=== PATIENT | female | born 1945 | race Caucasian/White ===

== ENCOUNTER 2018-11-15 10:50 | Outpatient (CLI) | payer MEDICARE, SELFPAY ==
[2018-11-15 11:52] LABS: Hemoglobin A1C 7.4 % (4.5-6.2)
[2018-11-15 12:07] LABS: ALT 25 U/L (12-78); AST 15 U/L (15-37); Albumin 3.6 g/dL (3.4-5.0); Alkaline Phosphatase 122 U/L (46-116); Anion Gap 9.5 mmol/L (3-11); BUN 22 mg/dL (7-18); Bilirubin, Total 0.3 mg/dL (0.2-1.0); CO2 27.5 mmol/L (21.0-32.0); CREATININE 0.96 mg/dL (0.55-1.02); Calcium 9.5 mg/dL (8.5-10.1); Calculated LDL 80 mg/dL; Chloride 106 mmol/L (98-107); Cholesterol 174 mg/dL (50-200); Estimated GFR 56.97 (mL/min/1.73m2); Glucose 122 mg/dL (70-100); HDL Cholesterol 65 mg/dL (40-60); Potassium 4.9 mmol/L (3.5-5.1); Sodium 143 mmol/L (136-145); Triglyceride 145 mg/dL (30-150)
== END 2018-11-15 11:10 ==
PROVIDERS: PCP Family Medicine; Visit Provider Family Medicine
DX: E11.9 Type 2 diabetes mellitus without complications (principal); E78.5 Hyperlipidemia, unspecified; I10 Essential (primary) hypertension
CPT/HCPCS: 36415; 80053; 80061; 83721; 83036

== ENCOUNTER 2019-01-24 00:36 | Outpatient (CLI) | payer MEDICARE, SELFPAY ==
--- NOTE | 2019-01-24 10:36 | MERGE_ITS ---
*[facility]* *[facility]* [address] [place] [address] Date of study: 01/24/2019 Transthoracic Echocardiography M-mode, complete 2D, complete spectral Doppler, and color Doppler *STUDY CONCLUSIONS* Summary: 1. Left ventricle: The cavity size was normal. Systolic function was normal. The estimated ejection fraction was 60-65%. Stroke volume/bsa (LVOT, Doppler): 27ml/m^2. 2. Aortic valve: There was mild stenosis. There was mild to moderate regurgitation. Peak velocity (S): 2.5m/sec. Mean gradient (S): 13.7mm Hg. VTI ratio of LVOT to aortic valve: 0.38. Valve area (VTI): 0.9cm^2. Valve area (Vmax): 1cm^2. Indexed valve area (Vmean): 0.4cm^2/m^2. Cannot discount the possibility of paradoxical LF-LG . 3. Mitral valve: There was mild regurgitation. 4. Right ventricle: The cavity size was normal. Wall thickness was normal. Systolic function was normal. 5. Atrial septum: No defect or patent foramen ovale was identified. 6. Tricuspid valve: There was mild-moderate regurgitation. 7. Pulmonary arteries: Pulmonary systolic pressure was in the range of 25mm Hg to 35mm Hg. 8. Inferior vena cava: The vessel was normal in size. The respirophasic diameter changes were in the normal range (greater than or equal to 50%), consistent with normal central venous pressure. *PATIENT PRESENTATION* Height: 160cm (63in ) S/D Pressure: 166 / 75 Weight: 95.3kg (209.6lb ) BSA: 2.1m^2 Test start time: 10:35 AM. Test stop time: 11:30 AM. Mary Padilla Dana REFERRING Mary Larson PERFORMING [facility] EXCELSIOR CUTTER [place] Gaitan *PROCEDURE DATA* Procedure information: This study was interpreted by [facility]. Pertinent images and digital data are archived for permanent storage and are available for subsequent review. No prior study was available for comparison. Study status: Routine. Transthoracic echocardiography. M-mode, complete 2D, complete spectral Doppler, and color Doppler. A Transthoracic Echocardiogram was performed. Scanning was performed from the parasternal, apical, subcostal, and suprasternal notch acoustic windows. Images were obtained using an [employer] SC 2000 cardiac ultrasound machine. Image quality was adequate. Study completion: The patient tolerated the procedure well. History: PMH: Murmur. *CARDIAC ANATOMY* Left ventricle: The cavity size was normal. Systolic function was normal. The estimated ejection fraction was 60-65%. The tissue Doppler parameters were abnormal. Diastolic parameters were normal for age. There was no evidence of elevated ventricular filling pressure by Doppler parameters. Aortic valve: Moderately thickened, moderately calcified leaflets. Doppler: There was mild stenosis. There was mild to moderate regurgitation. VTI ratio of LVOT to aortic valve: 0.38. Valve area (VTI): 0.9cm^2. Indexed valve area (VTI): 0.4cm^2/m^2. Peak velocity ratio of LVOT to aortic valve: 0.4. Valve area (Vmax): 1cm^2. Indexed valve area (Vmax): 0.5cm^2/m^2. Mean velocity ratio of LVOT to aortic valve: 0.36. Valve area (Vmean): 0.8cm^2. Indexed valve area (Vmean): 0.4cm^2/m^2. Mean gradient (S): 13.7mm Hg. Peak gradient (S): 25.7mm Hg. Aorta: Aortic root: The aortic root was normal in size. Ascending aorta: The ascending aorta was normal in size. Mitral valve: Doppler: There was no evidence for stenosis. There was mild regurgitation. Valve area by pressure half-time: 3.6cm^2. Indexed valve area by pressure half-time: 1.7cm^2/m^2. Peak gradient (D): 3.1mm Hg. Left atrium: The atrium was normal in size. Atrial septum: No defect or patent foramen ovale was identified. Right ventricle: The cavity size was normal. Wall thickness was normal. Systolic function was normal. Pulmonic valve: Doppler: There was no evidence for stenosis. There was mild regurgitation. Peak gradient (S): 3.1mm Hg. Tricuspid valve: Doppler: There was mild-moderate regurgitation. Pulmonary artery: Poorly visualized. Pulmonary systolic pressure was in the range of 25mm Hg to 35mm Hg. Right atrium: Poorly visualized. Pericardium: There was no pericardial effusion. Systemic veins: Inferior vena cava: The vessel was normal in size. The respirophasic diameter changes were in the normal range (greater than or equal to 50%), consistent with normal central venous pressure. Measurements Left ventricle Value Reference LV ID, ED, PLAX 4.4 cm 3.5 - 6.0 LV ID, ES, PLAX 2.8 cm 2.1 - 4.0 LV PW thickness, ED, PLAX 1.0 cm --------- LV end-diastolic volume, 1-p A2C 84 ml --------- LV ejection fraction, 1-p A2C 63 % --------- LV end-diastolic volume, 1-p A4C 80 ml --------- LV ejection fraction, 1-p A4C 50 % --------- LV e', lateral 0.083 m/sec --------- LV E/e', lateral 11 --------- LV e', medial 0.06 m/sec --------- LV E/e', medial 15 --------- LV e', average 0.071 m/sec --------- LV E/e', average 12 --------- Ventricular septum Value Reference IVS thickness, ED, PLAX 1.0 cm --------- LVOT Value Reference LVOT ID, A-P 1.7 cm --------- LVOT area 2.4 cm^2 --------- LVOT peak velocity, S 1.02 m/sec --------- LVOT mean velocity, S 0.62 m/sec --------- LVOT VTI, S 24.3 cm --------- LVOT peak gradient, S 4.2 mm Hg --------- LVOT mean gradient, S 1.9 mm Hg --------- Stroke volume (SV), LVOT DP 57 ml --------- Stroke index (SV/bsa), LVOT DP 27 ml/m^2 --------- Aortic valve Value Reference Aortic valve peak velocity, S 2.5 m/sec --------- Aortic valve mean velocity, S 1.7 m/sec --------- Aortic valve VTI, S 64.0 cm --------- Aortic mean gradient, S 13.7 mm Hg --------- Aortic peak gradient, S 25.7 mm Hg --------- VTI ratio, LVOT/AV 0.38 --------- Aortic valve area, VTI 0.9 cm^2 --------- Velocity ratio, peak, LVOT/AV 0.4 --------- Aortic valve area, peak velocity 1 cm^2 --------- Velocity ratio, mean, LVOT/AV 0.36 --------- Aortic valve area, mean velocity 0.8 cm^2 --------- Aortic valve area/bsa, mean velocity 0.4 cm^2/m^2 --------- Aortic regurg deceleration 164 cm/s^2 --------- Aortic regurg pressure half-time 580 ms --------- Aorta Value Reference Aortic root ID, ED 2.8 cm --------- Ascending aorta ID, A-P, S 3.4 cm --------- Left atrium Value Reference LA ID, A-P, ES 3.7 cm --------- LA ID/bsa, A-P 1.8 cm/m^2 <=2.2 LA volume, ES, 2-p 54 ml --------- LA volume/bsa, ES, 2-p 26 ml/m^2 --------- LA/aortic root ratio 1.34 --------- Mitral valve Value Reference Mitral E-wave peak velocity 0.88 m/sec --------- Mitral A-wave peak velocity 0.93 m/sec --------- Mitral deceleration time 209 ms 150 - 230 Mitral pressure half-time 61 ms --------- Mitral peak gradient, D 3.1 mm Hg --------- Mitral E/A ratio, peak 0.94 --------- Mitral valve area, PHT, DP 3.6 cm^2 --------- Tricuspid valve Value Reference Tricuspid regurg peak velocity 2.7 m/sec --------- Tricuspid peak RV-RA gradient 28.7 mm Hg --------- Pulmonic valve Value Reference Pulmonic peak gradient, S 3.1 mm Hg --------- Legend: (L) and (H) saulo values outside specified reference range. I have personally reviewed the images and have reviewed and edited the reported findings. Electronically signed by Andrés Santiago MD 01/24/2019 18:53
== END 2019-01-24 00:56 ==
PROVIDERS: PCP Family Medicine; Visit Provider Family Medicine
DX: R01.1 Cardiac murmur, unspecified (principal); I35.2 Nonrheumatic aortic (valve) stenosis with insufficiency; I36.1 Nonrheumatic tricuspid (valve) insufficiency; I10 Essential (primary) hypertension
CPT/HCPCS: 93306

== ENCOUNTER 2019-03-07 12:00 | Outpatient (REF) | payer MEDICARE, SELFPAY ==
[2019-03-08 13:53] LABS: Microalb ug/mg Crea 125.5 ug/mg Cr
== END 2019-03-07 12:20 ==
LOC: NCHCN 12:00
PROVIDERS: PCP Family Medicine; Visit Provider Family Medicine
DX: E11.9 Type 2 diabetes mellitus without complications (principal)
CPT/HCPCS: 82043; 82570

== ENCOUNTER 2019-04-19 00:42 | Outpatient (CLI) | payer MEDICARE, SELFPAY ==
--- NOTE | 2019-04-19 09:34 | DI.NM_ITS ---
APPROVED REPORT Exam: Pharmacologic Patient Location: Out-Patient Room/Bed: Stress Nurse: Cristina Armstrong RN BMI: 36.38 Baseline Rhythm: Sinus. P-mitrale. Abnormal R-wave progression, early transition. Indications: Chest pressure. Pt reports last episode was 2 days ago while walking up her driveway (mi nimal incline). She experienced chest heaviness associated with some shortness of breath and jaw tigh tness. The pain subsided within minutes of rest and rubbing her chest. Medical History Medical History: Diabetic ??? Noninsulin, HTN Allergies: No known drug allergies Cardiac Risk Factors: HTN, Diabetes (non-insulin), FHX of CAD Pretest Chest Pain Characteristics: Exertional Chest pain Physical Disabilities: Knees Lung Sounds: Clear to auscultation Heart Sounds: Regular Stress Test Details Test: Pharmacologic stress testing performed using 0.4 mg of regadenoson per 5 mL given IV over 10 s econds. Nuclear Acquisition: Rest Tc-99m/Stress Tc-99m 1 day Rest Isotope: Tc-99m Sestamibi. Dose: 11.5 Date: 04/19/2019 Injection Time: 0820 Stress Isotope: Tc-99m Sestamibi. Dose: 36.8 Date: 04/19/2019 Injection Time: 1000 HR Max Heart Rate (APMHR): 147 bpm Resting HR Supine: 65 bpm Target HR (85% APMHR): 124 bpm Max HR Achieved: 79 bpm % of APMHR: 53 HR response to stress: Normal HR response to stress BP Resting BP Supine: 134/82 mmHg Max BP: 160/80 mmHg Recovery BP: 158/84 mmHg BP response to stress: Normal blood pressure response to stress. ECG Resting ECG: Sinus Rhythm ST Change: normal Stress ECG: Sinus Rhythm ST Change: No significant ST segment changes. Arrhythmia: Rare PVCs. Recovery ECG: Sinus Rhythm Recovery ST Change: No significant ST segment changes. Clinical Stress Symptoms: No significant symptoms post lexiscan injection. Exercise duration: 9 min59 sec Stress ECG Conclusion 1. No evidence of ischemia on the ECG portion of this exam. Protocol Used: Regadenoson Stress Test Summary STAGE HR BP Symptoms NOTES Supine 65 134/82 1 min post lexiscan injection 79 160/80 3 min post lexiscan injection 77 150/90 6 min post lexiscan injection 72 160/84 9 min post lexiscan injection 69 158/84 MPI Conclusion Stress ejection fraction was 72%. There is no evidence of ischemia on the imaging portion of this exam. This represents a normal SPECT stress test. Radiologist Interpretation Radiologist agrees with Shoe Sprayer's Interpretation. Radiologist Interpretation by: Tammi Guan MD Interpretation Date/Time: 04/20/2019 08:47:16
[2019-04-19] MEDS: Regadenoson 0.4 MG/5 ML SYR IVP (09:55)
== END 2019-04-19 01:02 ==
PROVIDERS: PCP Family Medicine; Visit Provider Nurse Practitioner
DX: R07.89 Other chest pain (principal); R06.02 Shortness of breath; I10 Essential (primary) hypertension; E11.9 Type 2 diabetes mellitus without complications; Z82.49 Family history of ischemic heart disease and other diseases of the circulatory system
CPT/HCPCS: 78452; 93016; 93018; 93017; J2785

== ENCOUNTER 2019-05-09 10:07 | Outpatient (CLI) | payer MEDICARE, SELFPAY | END 2019-05-09 10:27 | PROVIDERS: PCP Family Medicine; Visit Provider Family Medicine | DX: R00.2 Palpitations (principal) ==

== ENCOUNTER 2019-05-15 12:58 | Outpatient (CLI) | payer MEDICARE, SELFPAY | END 2019-05-15 13:18 | PROVIDERS: PCP Family Medicine; Visit Provider Family Medicine | DX: R00.2 Palpitations (principal); I49.1 Atrial premature depolarization; I49.3 Ventricular premature depolarization | CPT/HCPCS: 93225 ==

== ENCOUNTER 2019-05-18 07:17 | Outpatient (CLI) | payer MEDICARE, SELFPAY ==
--- NOTE | 2019-05-19 08:46 | W.HOLTRPT ---
Date of service: 05/19/19 Time of Service: 08:46 Holter Monitor Report Holter Monitor Note: There is a 2-day Holter monitor ordered for the indication of palpitations. ?The patient was in normal sinus rhythm for majority of the recording. ?There were no episodes of supraventricular tachycardia and rare (less than 1%) premature atrial contractions. ?There were 0 episodes of ventricular tachycardia and one single ventricular ectopic beat. ?There were no episodes of atrial fibrillation, no pauses greater than 3 seconds and no episodes of high degree heart block. ?Diary events were associated with sinus rhythm and sinus tachycardia.
== END 2019-05-18 07:37 ==
PROVIDERS: PCP Family Medicine; Visit Provider Family Medicine
DX: R00.2 Palpitations (principal); I49.1 Atrial premature depolarization; I49.3 Ventricular premature depolarization
CPT/HCPCS: 93226

== ENCOUNTER 2019-05-19 08:46 | Outpatient (CLI) | payer MEDICARE, SELFPAY | END 2019-05-19 09:06 | PROVIDERS: PCP Family Medicine; Referring Provider Family Medicine; Visit Provider Internal Medicine Cardiovascular Disease | DX: R00.2 Palpitations (principal); I49.1 Atrial premature depolarization; I49.3 Ventricular premature depolarization | CPT/HCPCS: 93227 ==

== ENCOUNTER 2019-06-20 08:41 | Outpatient (CLI) | payer MEDICARE, SELFPAY | END 2019-06-20 09:01 | PROVIDERS: PCP Family Medicine; Visit Provider Internal Medicine Cardiovascular Disease | DX: I35.0 Nonrheumatic aortic (valve) stenosis (principal); R07.89 Other chest pain; I10 Essential (primary) hypertension; E78.5 Hyperlipidemia, unspecified; E11.9 Type 2 diabetes mellitus without complications | CPT/HCPCS: 99203; 93005; 93010 ==

== ENCOUNTER 2019-07-01 09:58 | Outpatient (CLI) | payer MEDICARE, SELFPAY ==
--- NOTE | 2019-07-01 09:15 | DI.RAD_ITS ---
EXAM: XR KNEE LT 3V AP,LAT,SHARON INDICATION: left knee pain. COMPARISON: No exams were available for comparison TECHNIQUE: 2D digital imaging was performed. FINDINGS: On the weight-bearing view, there is moderate to severe narrowing of the lateral femoral tibial joint . There is periarticular sclerosis, mild periarticular spurring and subchondral cyst formation. Ther e is mild spurring medially. Patellofemoral joint shows minimal degenerative changes. Chondrocalcin osis is seen. No joint effusion is visible. 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 DATA REPOSITORY: RADIATION DOSE DELIVERED:
--- NOTE | 2019-07-01 09:15 | DI.RAD_ITS ---
EXAM: XR KNEE RT 3V AP,LAT,SHARON INDICATION: right knee pain. COMPARISON: XR KNEE LT 3V AP,LAT,SHARON from 07/01/2019 TECHNIQUE: 2D digital imaging was performed. FINDINGS: There is moderate narrowing of the lateral femoral tibial joint. There are multiple subchondral cyst s. There is periarticular spurring. There is some compensatory widening of the medial femoral tibia l joint. Chondrocalcinosis is seen in the medial joint space. There is minimal spurring at the huang llofemoral joint. There is a rounded bony density projecting anteriorly in the midline which could r epresent a loose body versus bone island. No joint effusion is visible. 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 Question of joint space loose bod y. DATA REPOSITORY: RADIATION DOSE DELIVERED:
== END 2019-07-01 10:18 ==
PROVIDERS: PCP Family Medicine; Referring Provider Family Medicine; Visit Provider Student in an Organized Health Care Education/Training Program
DX: M25.561 Pain in right knee (principal); M25.562 Pain in left knee; M11.261 Other chondrocalcinosis, right knee; M11.262 Other chondrocalcinosis, left knee; M17.11 Unilateral primary osteoarthritis, right knee; M17.12 Unilateral primary osteoarthritis, left knee; M65.331 Trigger finger, right middle finger
CPT/HCPCS: 20610; 73562; 99203; 99214; J1040

== ENCOUNTER 2019-07-07 12:02 | Outpatient (CLI) | payer MEDICARE, SELFPAY ==
[2019-07-07 12:28] LABS: Abs Immature Grans 0.04 k/cumm (0.0-0.09); Absolute Basophil Count 0.03 k/cumm (0.0-0.2); Absolute Eosinophil Count 0.33 k/cumm (0.0-0.7); Absolute Monocyte Count 0.92 k/cumm (0.11-0.7); Absolute Neutrophil Count 6.83 k/cumm (1.2-6.7); Basophils % 0.3; Eosinophils % 3.6; HCT 37.8 % (36.0-46.0); HGB 11.8 g/dL (12.0-15.5); Immature Grans % 0.4 %; Lymphocytes % 10.9; Mean Corp. HGB Concentration 31.2 g/dL (32.0-36.0); Mean Corpuscular Hemoglobin 29.2 pg (27.0-33.0); Mean Corpuscular Volume 93.6 fL (80-95); Monocytes % 10.1; Neutrophils % 74.7; Platelet Count 367 x1000/uL (130-400); RBC 4.04 m/cumm (4.00-5.20); RBC Distribution Width 13.6 % (11.7-14.6); White Blood Cell Count 9.15 k/cumm (4.4-10.8)
[2019-07-07 12:46] LABS: ALT 34 U/L (14-59); AST 17 U/L (15-37); Albumin 3.3 g/dL (3.4-5.0); Alkaline Phosphatase 124 U/L (46-116); Anion Gap 6.8 mmol/L (3-11); BUN 24 mg/dL (7-18); Bilirubin, Total 0.3 mg/dL (0.2-1.0); CO2 29.2 mmol/L (21.0-32.0); CREATININE 0.85 mg/dL (0.55-1.02); Calcium 9.4 mg/dL (8.5-10.1); Chloride 103 mmol/L (98-107); Glucose 108 mg/dL (74-106); LDH 120 U/L (81-234); Sodium 139 mmol/L (136-145); Total Protein 6.9 g/dL (6.4-8.2)
== END 2019-07-07 12:22 ==
PROVIDERS: PCP Family Medicine; Visit Provider Internal Medicine Hematology & Oncology
DX: C85.89 Other specified types of non-Hodgkin lymphoma, extranodal and solid organ sites (principal)
CPT/HCPCS: 36415; 80053; 83615; 85025

== ENCOUNTER → 2019-10-31 15:15 | Outpatient (BNVA) | payer MEDICARE, MEDICAID, SELFPAY | PROVIDERS: PCP Family Medicine; Referring Provider Family Medicine; Visit Provider Student in an Organized Health Care Education/Training Program | DX: M17.11 Unilateral primary osteoarthritis, right knee (principal); M65.331 Trigger finger, right middle finger | CPT/HCPCS: 20610; 99213; J1040 ==

== ENCOUNTER 2019-11-09 06:08 | Day surgery (SDC) | payer MEDICARE, MEDICAID, SELFPAY ==
[2019-11-09 06:15] VITALS: BP 134/75; PULSE 70; RESP 18; TEMP 36.4; O2SAT 97
--- NOTE | 2019-11-09 07:21 | PDOC.DSDIS_ITS ---
Discharge Plan Disposition Patient Disposition: HOME Condition: Good Discharge Details Reason For Visit: Right Middle Finger Trigger Attending Provider: Vu Ayala Primary Care Provider: Mary Larson Home Meds and New Rx's Prescriptions: New acetaminophen 500 mg tablet 1,000 mg PO Q8H PRN (Reason: pain) Qty: 60 RF: 3 Continued metformin 1,000 mg tablet 1,000 mg PO BID RF: 0 amlodipine 5 mg tablet 5 mg PO DAILY RF: 0 lisinopril-hydrochlorothiazide 20-25 mg tablet 2 tab PO DAILY RF: 0 simvastatin 20 mg tablet 20 mg PO QHS RF: 0 gabapentin 300 mg capsule 300 mg PO QHS RF: 0 ketoconazole 2 % cream 1 applic TP DAILY PRNRF: 0 ibuprofen 600 mg tablet 600 mg PO Q6H PRNRF: 0 folic acid 400 mcg tablet 0.4 mg PO DAILY RF: 0 cholecalciferol (vitamin D3) 25 mcg (1,000 unit) capsule 1,000 unit PO DAILY RF: 0 aspirin 81 mg tablet,delayed release (DR/EC) 81 mg PO HS RF: 0 cyanocobalamin (vitamin B-12) [B-12 DOTS] 500 mcg tablet 1,000 mcg PO .everyotherday RF: 0 celecoxib 200 mg capsule 200 mg PO BID Qty: 60 RF: 0 Discharge Instructions Stand Alone Forms: Jamie Vela Finger Release Referrals: Vu Ayala MD [ [facility] STAFF PHYSICIAN] - Activity:: Elevate Remove Dressings/Wound Care:: 48 hours Shower/Bathe:: 48 hours Diet:: As Tolerated Discharge Orders Discharge Orders: Discharge Order (Routine); Ordered 11/09/19 Ordered By: uV Ayala DS: Diagnosis Discharge Diagnosis (1) Trigger finger, right middle finger: Status: Acute
[2019-11-09] MEDS: Sodium Bicarbonate 50 MEQ/50 ML VIAL (07:27)
--- NOTE | 2019-11-09 07:59 | W.PM.OP ---
Date of service: 11/09/19 Time of Service: 07:59 Operative Note Operative Note DATE OF PROCEDURE: 11/09/19 PRE-OP DIAGNOSIS: Right Middle Finger Trigger Finger POST-OP DIAGNOSIS: same PROCEDURE: Trigger Finger Release - Right Middle Finger SURGEON: Vu Ayala ANESTHESIA: local ESTIMATED BLOOD LOSS: 0 PATHOLOGY: none sent TOURNIQUET TIME: 0 COMPLICATIONS: None Patient was transported to: same day Patient's condition: stable Indications: I have seen Dar in clinic for symptoms of a trigger finger. The catching, clicking, locking, and pain limited function. The diagnosis of trigger finger was evident. The symptoms had not responded to conservative measures. I discussed trigger finger release with the patient. I reviewed the risks of the procedure to include, but not limited to, bleeding, infection, pain, stiffness, incomplete release, damage to nerves or vessels, continued catching, recurrence. Despite these risks, the patient elected to proceed. Findings: There was a tightened A1 johnson which was released. The flexor tendons were inspected and did show some fraying which was debrided. She was able to move the finger without any catching, clicking, or locking. Procedure Description: Dar was greeted in the preoperative holding area where the correct side was identified and marked. The consent was reviewed with the patient and signed. All questions were answered. Dar was taken back to the operating room. The patient was placed into the supine position on the operating room table with the right arm on an arm board. All bony prominences were well padded. No prophylactic antibiotics were administered since this was a clean, elective hand surgical case. The right arm was then prepped with Chloraprep and draped in a standard fashion with stockinette and extremity drape. A timeout to confirm correct identity, side and site, procedure, allergies, anesthesia, and medical concerns was performed. The surgical site was marked as a longitudinal incision directly over the A1 johnson of the involved digit. This was confirmed with palpation during finger flexion. This area, overlying the metacarpal head, was then anesthetized with 1% Lidocaine with Epinephine buffered with sodium bicarbonate. The patient tolerated this well and once the anesthetic had setup, the procedure began. A longitudinal incision was made through skin only, approximately 1cm. The deep tissues were dissected bluntly. Once the A1 johnson and flexor tendons were identified the soft tissue including neurovascular structures were retracted medially and laterally. There were no crossing structures over the A1 johnson. The proximal edge of the johnson was identified and the johnson was incised with tenotomy scissors. There was a release of the tendons once this was fully released. The tendons were then removed from the wound and inspected. Excess synovium was resected. There was some fraying seen on the tendons and this was debrided. The tendons were then returned and the patient was asked to move the finger into deep flexion and back to extension. There was no recreation of the pre-operative symptoms. The hand was then once more inspected for any A0 johnson or area of possible constriction. The wound was then irrigated and the skin was closed with a 4-0 Nylon. This was dressed with gauze and a Conform dressing. The patient tolerated the procedure well and was returned to the Same Day Surgery area in a stable condition suffering no known complication.
== END 2019-11-09 08:08 | disposition home or self-care (01) ==
PROVIDERS: PCP Family Medicine; Visit Provider Student in an Organized Health Care Education/Training Program
PROC: (CPT 26055; principal; 2019-11-09 07:30)
DX: M65.331 Trigger finger, right middle finger (principal)
CPT/HCPCS: 26055

== ENCOUNTER 2019-11-18 09:45 | Outpatient (CLI) | payer MEDICARE, SELFPAY | END 2019-11-18 10:05 | PROVIDERS: PCP Family Medicine; Visit Provider Student in an Organized Health Care Education/Training Program | DX: Z47.89 Encounter for other orthopedic aftercare (principal); M65.331 Trigger finger, right middle finger ==

== ENCOUNTER 2019-12-22 11:17 | Outpatient (REF) | payer MEDICARE, SELFPAY ==
[2019-12-22 18:34] LABS: Abs Immature Grans 0.03 10^3/uL (0.0-0.06); Absolute Basophil Count 0.04 10^3/uL (0.0-0.2); Absolute Eosinophil Count 0.28 10^3/uL (0.0-0.7); Absolute Lymphocyte Count 0.76 10^3/uL (1.2-3.4); Absolute Monocyte Count 0.73 10^3/uL (0.1-0.8); Absolute Neutrophil Count 5.83 10^3/uL (1.2-6.7); Basophils % 0.5; Eosinophils % 3.7; HGB 11.3 g/dL (11.2-15.7); Immature Grans % 0.4; Lymphocytes % 9.9; MCH 29.4 pg (27.0-33.0); MCHC 31.4 % (32.0-36.0); MCV 93.5 fL (80-95); MPV 9.9 fL (8.0-11.0); Monocytes % 9.5; Nucleated RBC 0 %; Platelet Count 313 10^3/uL (130-400); RBC 3.85 10^6/uL (3.93-5.22); RDW 13.4 % (11.7-14.6); RDW-SD 45.9 fL; WBC 7.67 10^3/uL (4.4-10.8)
[2019-12-22 18:51] LABS: Iron 61 ug/dL (50-170); Total Iron Binding Capacity 315 ug/dL (250-450); Transferrin Sat 19 % (15-50)
[2019-12-22 19:04] LABS: ALT 25 U/L (14-59); AST 15 U/L (15-37); Albumin 3.5 g/dL (3.4-5.0); Alkaline Phosphatase 114 U/L (46-116); Anion Gap 9.7 mmol/L (3-11); BUN 22 mg/dL (7-18); Bilirubin, Total 0.4 mg/dL (0.2-1.0); CO2 25.3 mmol/L (21.0-32.0); CREATININE 0.97 mg/dL (0.55-1.02); Calcium 9.3 mg/dL (8.5-10.1); Chloride 104 mmol/L (98-107); Estimated GFR 56.14 (mL/min/1.73m2); Ferritin 92 ng/mL (8-252); Glucose 127 mg/dL (74-106); Potassium 4.7 mmol/L (3.5-5.1); Sodium 139 mmol/L (136-145); Total Protein 7.1 g/dL (6.4-8.2)
== END 2019-12-22 11:37 ==
LOC: NCHCN 11:17
PROVIDERS: PCP Family Medicine; Visit Provider Family Medicine
DX: D50.9 Iron deficiency anemia, unspecified (principal); Z85.79 Personal history of other malignant neoplasms of lymphoid, hematopoietic and related tissues
CPT/HCPCS: 80053; 82728; 83540; 83550; 85025

== ENCOUNTER → 2019-12-23 11:59 | Outpatient (BNVA) | payer MEDICARE, MEDICAID, SELFPAY | PROVIDERS: PCP Family Medicine; Referring Provider Family Medicine; Visit Provider Internal Medicine Cardiovascular Disease | DX: I35.0 Nonrheumatic aortic (valve) stenosis (principal); I10 Essential (primary) hypertension; R07.89 Other chest pain | CPT/HCPCS: 99213 ==

== ENCOUNTER 2020-02-08 01:09 | Outpatient (CLI) | payer MEDICARE, MEDICAID, SELFPAY ==
[2020-02-08 10:51] LABS: Abs Immature Grans 0.03 10^3/uL (0.0-0.06); Absolute Basophil Count 0.05 10^3/uL (0.0-0.2); Absolute Eosinophil Count 0.45 10^3/uL (0.0-0.7); Absolute Lymphocyte Count 0.89 10^3/uL (1.2-3.4); Absolute Monocyte Count 0.83 10^3/uL (0.1-0.8); Absolute Neutrophil Count 5.28 10^3/uL (1.2-6.7); Basophils % 0.7; HGB 11.2 g/dL (11.2-15.7); Immature Grans % 0.4; Lymphocytes % 11.8; MCH 29.5 pg (27.0-33.0); MCHC 31.1 % (32.0-36.0); MCV 94.7 fL (80-95); MPV 9.2 fL (8.0-11.0); Neutrophils % 70.1; Nucleated RBC 0 %; Platelet Count 289 10^3/uL (130-400); RDW 13.2 % (11.7-14.6); RDW-SD 45.9 fL; WBC 7.53 10^3/uL (4.4-10.8)
[2020-02-08 11:04] LABS: ALT 27 U/L (14-59); AST 19 U/L (15-37); Albumin 3.1 g/dL (3.4-5.0); Alkaline Phosphatase 112 U/L (46-116); Anion Gap 7.2 mmol/L (3-11); BUN 29 mg/dL (7-18); Bilirubin, Total 0.2 mg/dL (0.2-1.0); CO2 27.8 mmol/L (21.0-32.0); CREATININE 0.99 mg/dL (0.55-1.02); Calcium 9.3 mg/dL (8.5-10.1); Chloride 105 mmol/L (98-107); Estimated GFR 54.83 (mL/min/1.73m2); Glucose 157 mg/dL (74-106); LDH 129 U/L (81-234); Potassium 4.6 mmol/L (3.5-5.1); Sodium 140 mmol/L (136-145); Total Protein 6.9 g/dL (6.4-8.2)
[2020-02-08 11:27] LABS: Ferritin 76 ng/mL (8-252); Iron 51 ug/dL (50-170); Total Iron Binding Capacity 304 ug/dL (250-450); Transferrin Sat 17 % (15-50)
== END 2020-02-08 01:29 ==
PROVIDERS: PCP Family Medicine; Visit Provider Internal Medicine Hematology & Oncology
DX: C85.89 Other specified types of non-Hodgkin lymphoma, extranodal and solid organ sites (principal); D50.9 Iron deficiency anemia, unspecified
CPT/HCPCS: 36415; 80053; 82728; 83540; 83550; 83615; 85025

== ENCOUNTER 2020-06-12 01:01 | Outpatient (CLI) | payer MEDICARE, MEDICAID, SELFPAY ==
--- NOTE | 2020-06-12 | DI.CT_ITS ---
EXAM: CT CHEST/ABD/PEL W CLINICAL HISTORY: H/O LYMPHOMA OF LUNG,SURVEILLANCE,COMPARE TO OUTSIDE CT WITH INDICATOR SITE. TECHNIQUE: Imaging Protocol: Axial computed tomography images with coronal and sagittal reformatted images were created and reviewed CONTRAST MATERIAL: Intravenous: Omnipaque 350 Contrast volume:100 ml Oral: None COMPARISON: CT CT CHEST W CONTRAST from 02/16/[address] CHEST W CONTRAST from 07/29/[address] CHEST W CONTRAST from 07/29/2018 CT,NM,TMT NM MPI REST STRESS GRP from 04/19/2019 , performed that [facility], now received. Also reviewed chest CT scan February 2018 from the same outside institution. FINDINGS: CHEST: LUNGS: There is bilateral pulmonary hyperinflation again noted. No bullae. There is a small [address] noncalcified pleural-based nodule in the anterior basal segment of the left lower lobe, unchanged , not associated with overlying rib destruction. Benign increased markings in the left lower lobe are unchanged. No new left lung findings nor pleural effusion. In the opposite-right lung there is there are mild increased markings/infiltrate in the right upper l obe, medially, unchanged.. There are no new focal findings in the right upper lobe nor in the right m iddle lobe. There is a pleural-based small nodular infiltrate in the lateral basal segment of the rig ht lower lobe which is unchanged from July 2018. No pleural effusion. There are no new significant focal findings in the trachea and mainstem bronchi. MEDIASTINUM: There is no hilar adenopathy nor subcarinal adenopathy. There is an unchanged enlarged l ymph node in the anterior mediastinal fat located adjacent to the pulmonary artery outflow tract and measuring 1.6 cm wide by 1.5 cm cephalocaudal by by 1.6 cm AP. This is unchanged in size. There is en largement and nodularity again noted in the right thyroid lobe and isthmus. The left thyroid lobe exh ibits normal size.There is no supraclavicular adenopathy. There is no axillary adenopathy. CARDIAC: Heart size is normal. There is no pericardial effusion.Caliber of the thoracic aorta is wit hin normal limits. OSSEOUS: Again noted is a non healed but nonpathologic appearing fracture of the posterolateral aspec t of the left 8th rib. There are no other rib fractures identified.. ABDOMEN: There is no ascites. LIVER: Mild hepatomegaly and steatosis of the liver is again noted. There are no obvious discrete foc al hepatic lesions evident. GALLBLADDER/BILIARY: No obvious gallbladder pathology. CBD is not dilated. PANCREAS: No evidence of pancreatic mass nor dilatation of the pancreatic duct. SPLEEN: Spleen is not enlarged. There are no intrasplenic lesions. Splenic and portal veins are huang nt. ADRENALS: There are no significant adrenal masses. KIDNEYS: The left kidney appears unremarkable. There is a small 9 x 8 millimeter partially exophytic nodular density off the lateral cortex of the right kidney,, this being too dense to be a simple cyst . Either a hemorrhagic cyst or small solid nodule. More inferiorly there is a larger 2 x 1.7 centimet er benign cyst in the inferior cortex of the right kidney. There are no intrarenal calculi nor hydron ephrosis.. ABDOMINAL AORTA: Abdominal aorta is not enlarged and there is no ozdsinlcocbvoug-lhak-afxnxm adenopat hy. ABDOMINAL WALL/GI: No evidence of significant anterior abdominal wall hernia. No bowel obstruction. There are normally thickened distal small bowel loops evident in the central right side of the abdome n, including what appears to be the most distal small bowel loops. There there appears to have been p rior distal small bowel surgery.. More proximal small bowel loops appear unremarkable. There is no ad enopathy in the adjacent mesentery adjacent to the abnormal small bowel loops although there is very minimal streaking evident. No distinct fluid collection evident in the mesentery PELVIS: LYMPH NODES: There is no intrapelvic nor inguinal adenopathy. GI: No evidence of appendicitis.No evidence of sigmoid diverticulitis. URINARY BLADDER: No calculi nor obvious masses. No distension. REPRODUCTIVE: The uterus is surgically absent. There are no abnormal adnexal masses nor free fluid in the pelvis. OSSEOUS: No significant osseous lesions. Mild degenerative anterolisthesis of L4 upon L5 noted. IMPRESSION: 1. Stable appearing intrathoracic findings including benign-appearing pulmonary findings (no pleural effusions) as well as stable appearance of a solitary prominent nodule-probable lymph node in the ant erior mediastinal fat. There is no new hilar, subcarinal, pretracheal, supraclavicular, or axillary a denopathy. 2. Non healed left 8th rib fractures again noted. There is the no obvious osseous lesion at this leve l. 3. There is evidence of probable partial distal small bowel resection. However, the most distal of th e small bowel loops is abnormally thickened in transmural fashion, either related to inflammatory pro cess or neoplasm such as lymphoma. In addition, there is some mild haziness and increased vascularity in the adjacent mesentery, this best appreciated on the coronal reconstructed images. 4. There is no obvious lymphadenopathy in the abdomen and pelvis and inguinal regions. No abnormal fl uid collections. No ascites. 5. The uterus is surgically absent. There are no abnormal adnexal findings. 6. Hepatic steatosis again noted. Mild hepatomegaly. No discrete focal hepatic lesions evident nor di latation of the biliary tree, both intra and extrahepatic. 7. RADIATION DOSE DELIVERED: Total DLP DATA REPOSITORY: All CT scans at this facility are submitted to the National Radiology Data Registry (NRDR) Dose Index Registry (DIR) with the [employer] (ACR). RADIATION OPTIMIZATION: All CT scans at this facility use at least one of these dose optimization te chniques: automated exposure control; mA and/or kV adjustment per patient size (includes targeted exa ms where dose is matched to clinical indication); or iterative reconstruction.
[2020-06-12] MEDS: Breeza Beverage 473 ML BTL PO ×2 (08:33→08:34)
[2020-06-12] MEDS: Omnipaque 350 MG/ML 50 ML BTL PO (08:34)
[2020-06-12 09:06] LABS: Abs Immature Grans 0.02 10^3/uL (0.0-0.06); Absolute Basophil Count 0.04 10^3/uL (0.0-0.2); Absolute Eosinophil Count 0.47 10^3/uL (0.0-0.7); Absolute Lymphocyte Count 0.87 10^3/uL (1.2-3.4); Absolute Monocyte Count 0.77 10^3/uL (0.1-0.8); Absolute Neutrophil Count 4.91 10^3/uL (1.2-6.7); Basophils % 0.6; Eosinophils % 6.6; HGB 11.3 g/dL (11.2-15.7); Immature Grans % 0.3; Lymphocytes % 12.3; MCH 30.2 pg (27.0-33.0); MCHC 32.3 % (32.0-36.0); MCV 93.6 fL (80-95); MPV 9.3 fL (8.0-11.0); Monocytes % 10.9; Neutrophils % 69.3; Nucleated RBC 0 %; Platelet Count 313 10^3/uL (130-400); RBC 3.74 10^6/uL (3.93-5.22); RDW 13.3 % (11.7-14.6); WBC 7.08 10^3/uL (4.4-10.8)
[2020-06-12 09:22] LABS: Iron 62 ug/dL (50-170); Total Iron Binding Capacity 306 ug/dL (250-450); Transferrin Sat 20 % (15-50)
[2020-06-12 09:30] LABS: ALT 28 U/L (14-59); AST 21 U/L (15-37); Albumin 3.1 g/dL (3.4-5.0); Alkaline Phosphatase 144 U/L (46-116); Anion Gap 9.2 mmol/L (3-11); BUN 24 mg/dL (7-18); Bilirubin, Total 0.3 mg/dL (0.2-1.0); CO2 26.8 mmol/L (21.0-32.0); CREATININE 0.9 mg/dL (0.55-1.02); Calcium 9.3 mg/dL (8.5-10.1); Chloride 103 mmol/L (98-107); Ferritin 61 ng/mL (8-252); Glucose 161 mg/dL (74-106); Potassium 4.7 mmol/L (3.5-5.1); Sodium 139 mmol/L (136-145); Total Protein 7.2 g/dL (6.4-8.2)
[2020-06-12] MEDS: Normal Saline - Diluent 50 ML VIAL IV (09:54)
[2020-06-12] MEDS: Omnipaque 350 MG/ML 100 ML BTL IJ (09:54)
[2020-06-12] MEDS: Normal Saline Flush 10 ML SYR IVP (09:55)
[2020-06-14 15:54] LABS: Hemoglobin A1C 7.6 % (<5.7)
[2020-06-14 16:05] LABS: TSH (W/Ref FT4) 3.97 uIU/mL (0.36-3.74)
[2020-06-14 16:23] LABS: FREE T4 0.83 ng/dL (0.76-1.46)
== END 2020-06-12 01:02 ==
PROVIDERS: PCP Family Medicine; Visit Provider Internal Medicine Hematology & Oncology
DX: K76.0 Fatty (change of) liver, not elsewhere classified (principal); C85.89 Other specified types of non-Hodgkin lymphoma, extranodal and solid organ sites; R91.8 Other nonspecific abnormal finding of lung field; S22.32XA Fracture of one rib, left side, initial encounter for closed fracture; R93.5 Abnormal findings on diagnostic imaging of other abdominal regions, including retroperitoneum
CPT/HCPCS: 74177; 80053; 71260; 82728; 83036; 83540; 83550; 84439; 84443; 85025; J3490; Q9967

== ENCOUNTER 2020-06-28 01:39 | Outpatient (CLI) | payer MEDICARE, SELFPAY ==
--- NOTE | 2020-06-28 13:33 | DI.DEXA_ITS ---
EXAM: XR DEXA BONE DENSITY W/WO DAVID CLINICAL HISTORY: SCREENING FOR OSTEOPOROSIS IN POSTMENOPAUSAL WOMAN,Z78.0,PREVENTATIVE , TECHNIQUE: Routine DEXA evaluation of the lumbar spine, hip, or forearm. COMPARISON: No exams were available for comparison FINDINGS: Performed on a Hologic unit. Lateral image: No compression fracture evident. Lumbar Spine total T-score: -1.1 Hip total T-score:-2.4 Forearm total T-score: IMPRESSION: Bone mineral density measures in the osteopenia range. Fracture risk is moderate. Note: Any spine fracture indicates 5x risk for subsequent spine fracture and 2x risk for subsequent h ip fracture. World Health Organization criteria for BMD interpretation classify patients: Normal...... T- Score at or above -1.0 Osteopenic... T- Score between -1.0 and -2.5 Osteoporosis... T-Score at or below -2.5
== END 2020-06-28 01:40 ==
PROVIDERS: PCP Family Medicine; Visit Provider Family Medicine
DX: M85.88 Other specified disorders of bone density and structure, other site (principal); Z78.0 Asymptomatic menopausal state
CPT/HCPCS: 77080

== ENCOUNTER → 2020-07-26 08:16 | Outpatient (BNVA) | payer MEDICARE, MEDICAID, SELFPAY | PROVIDERS: PCP Family Medicine; Referring Provider Family Medicine; Visit Provider Psychiatry & Neurology Neurology | DX: G56.03 Carpal tunnel syndrome, bilateral upper limbs (principal); G62.9 Polyneuropathy, unspecified; E11.40 Type 2 diabetes mellitus with diabetic neuropathy, unspecified | CPT/HCPCS: 95911; 99215 ==

== ENCOUNTER 2020-08-08 03:22 | Outpatient (CLI) | payer MEDICARE, MEDICAID, SELFPAY ==
[2020-08-08 13:25] LABS: Vitamin B12 1064 pg/mL (193-986)
[2020-08-10 16:17] LABS: Albumin 57.3 % (55.8-66.1); Total Protein 6.6 g/dL (6.3-8.2)
== END 2020-08-08 03:23 | disposition home or self-care (01) ==
LOC: LBO 03:22
PROVIDERS: PCP Family Medicine; Visit Provider Psychiatry & Neurology Neurology
DX: G62.9 Polyneuropathy, unspecified (principal)
CPT/HCPCS: 36415; 82607; 84165

== ENCOUNTER → 2020-08-17 09:28 | Outpatient (BNVA) | payer MEDICARE, MEDICAID, SELFPAY | PROVIDERS: PCP Family Medicine; Referring Provider Family Medicine; Visit Provider Student in an Organized Health Care Education/Training Program | DX: M17.11 Unilateral primary osteoarthritis, right knee (principal); M17.12 Unilateral primary osteoarthritis, left knee; M65.332 Trigger finger, left middle finger; M65.342 Trigger finger, left ring finger | CPT/HCPCS: 99213 ==

== ENCOUNTER → 2020-09-20 07:22 | Outpatient (BNVA) | payer MEDICARE, MEDICAID, SELFPAY | PROVIDERS: PCP Family Medicine; Referring Provider Family Medicine; Visit Provider Nurse Practitioner Adult Health | DX: E11.40 Type 2 diabetes mellitus with diabetic neuropathy, unspecified (principal) | CPT/HCPCS: 99213; 99443 ==

== ENCOUNTER 2020-09-26 06:15 | Day surgery (SDC) | payer MEDICARE, MEDICAID, SELFPAY ==
[2020-09-26 06:21] VITALS: BP 119/68; PULSE 66; RESP 16; TEMP 36.2; O2SAT 98
--- NOTE | 2020-09-26 07:28 | W.PM.DSUDISC ---
Discharge Plan Disposition Patient Disposition: HOME Condition: Good Discharge Details Reason For Visit: LMF, LRF trigger release Attending Provider: Vu Ayala Primary Care Provider: Mary Larson Home Meds and New Rx's Prescriptions: New acetaminophen 500 mg capsule 1,000 mg PO Q8H PRN PRNQty: 90 RF: 0 ibuprofen 600 mg tablet 600 mg PO TID PRN (Reason: pain) Qty: 30 RF: 0 Continued metformin 1,000 mg tablet 1,000 mg PO BID RF: 0 amlodipine 5 mg tablet 5 mg PO DAILY RF: 0 lisinopril-hydrochlorothiazide 20-25 mg tablet 2 tab PO DAILY RF: 0 simvastatin 20 mg tablet 20 mg PO QHS RF: 0 ketoconazole 2 % cream 1 applic TP DAILY PRNRF: 0 folic acid 400 mcg tablet 0.4 mg PO DAILY RF: 0 cholecalciferol (vitamin D3) 25 mcg (1,000 unit) capsule 1,000 unit PO DAILY RF: 0 aspirin 81 mg tablet,delayed release (DR/EC) 81 mg PO HS RF: 0 cyanocobalamin (vitamin B-12) [B-12 DOTS] 500 mcg tablet 1,000 mcg PO .everyotherday RF: 0 gabapentin 800 mg tablet 800 mg PO BID Qty: 60 RF: 5 lidocaine 5 % cream 1 applic topical Q4H PRN PRN (Reason: pain) Qty: 30 RF: 3 gabapentin 300 mg capsule 300 mg PO DAILY Qty: 30 RF: 3 magnesium 30 mg tablet 30 mg PO DAILY RF: 0 Discontinued ibuprofen 600 mg tablet 600 mg PO Q6H PRNRF: 0 acetaminophen 500 mg tablet 1,000 mg PO Q8H PRN (Reason: pain) Qty: 60 RF: 3 Discharge Instructions Stand Alone Forms: Jamie Vela Finger Release Referrals: Vu Ayala MD [ [facility] STAFF PHYSICIAN] - Activity:: Activity as Tolerated Remove Dressings/Wound Care:: 48 hours Shower/Bathe:: 48 hours Diet:: As Tolerated Discharge Orders Discharge Orders: Discharge Order (Routine); Ordered 09/26/20 Ordered By: Joe Holt DS: Diagnosis Discharge Diagnosis (1) Trigger finger, left ring finger: Status: Acute (2) Trigger finger, left middle finger: Status: Acute
[2020-09-26] MEDS: Sodium Bicarbonate 50 MEQ/50 ML VIAL (07:45)
[2020-09-26 08:00] VITALS: BP 156/60; PULSE 75; RESP 18; TEMP 36.3; O2SAT 96
--- NOTE | 2020-09-26 21:43 | W.PM.OP ---
Date of service: 09/26/20 Time of Service: 08:03 Operative Note Operative Note DATE OF PROCEDURE: 09/26/20 PRE-OP DIAGNOSIS: Left Ring and Middle Finger Trigger Finger POST-OP DIAGNOSIS: same PROCEDURE: Trigger Finger Release - Left Ring and Middle Trigger Fingers SURGEON: Vu Ayala ANESTHESIA TYPE: Local By Surgeon Refer to Anesthesia Record ESTIMATED BLOOD LOSS: 0 PATHOLOGY: none sent TOURNIQUET TIME: 0 COMPLICATIONS: None Patient was transported to: same day Patient's condition: stable Indications: I have seen Dar in clinic for symptoms of a trigger finger of the left ring and middle fingers. The catching, clicking, locking, and pain limited function. The diagnosis of trigger finger was evident. The symptoms had not responded to conservative measures. I discussed trigger finger release with the patient. I reviewed the risks of the procedure to include, but not limited to, bleeding, infection, pain, stiffness, incomplete release, damage to nerves or vessels, continued catching, recurrence. Despite these risks, the patient elected to proceed. Findings: There was a tightened A1 johnson of both fingers which was released. The flexor tendons were inspected and the patient was able to move the finger without any catching, clicking, or locking. Procedure Description: Dar was greeted in the preoperative holding area where the correct side was identified and marked. The consent was reviewed with the patient and signed. All questions were answered. She was taken back to the operating room. The patient was placed into the supine position on the operating room table with the left arm on an arm board. All bony prominences were well padded. No prophylactic antibiotics were administered since this was a clean, elective hand surgical case. The left arm was then prepped with Chloraprep and draped in a standard fashion with stockinette and extremity drape. A timeout to confirm correct identity, side and site, procedure, allergies, anesthesia, and medical concerns was performed. The surgical site was marked as a longitudinal incision directly over the A1 johnson of the ring and middle fingers. This was confirmed with palpation during finger flexion. This area, overlying the metacarpal heads of both digits, was then anesthetized with 1% Lidocaine buffered with Sodium Bicarbonate. The patient tolerated this well and once the anesthetic had setup, the procedure began. A longitudinal incision was made through skin only, approximately 1cm, starting with the ring finger. The deep tissues were dissected bluntly. Once the A1 johnson and flexor tendons were identified the soft tissue including neurovascular structures were retracted medially and laterally. There were no crossing structures over the A1 johnson. The proximal edge of the johnson was identified and the johnson was incised with tenotomy scissors. There was a release of the tendons once this was fully released. The tendons were then removed from the wound and inspected. Excess synovium was resected. There was some fraying of the tendons which was debrided and cleaned. The tendons were then returned and the patient was asked to move the finger into deep flexion and back to extension. There was no recreation of the pre-operative symptoms. The hand was then once more inspected for any A0 johnson or area of possible constriction. The wound was then irrigated and the skin was closed with a 4-0 Nylon. A longitudinal incision was made through skin only, approximately 1cm, of the middle finger. The deep tissues were dissected bluntly. Once the A1 johnson and flexor tendons were identified the soft tissue including neurovascular structures were retracted medially and laterally. There were no crossing structures over the A1 johnson. The proximal edge of the johnson was identified and the johnson was incised with tenotomy scissors. There was a release of the tendons once this was fully released. The tendons were then removed from the wound and inspected. Excess synovium was resected. The tendons were then returned and the patient was asked to move the finger into deep flexion and back to extension. There was no recreation of the pre-operative symptoms. The hand was then once more inspected for any A0 johnson or area of possible constriction. The wound was then irrigated and the skin was closed with a 4-0 Nylon. This was dressed with gauze and a Conform dressing. The patient tolerated the procedure well and was returned to the Same Day Surgery area in a stable condition suffering no known complication.
== END 2020-09-26 08:32 | disposition home or self-care (01) ==
PROVIDERS: PCP Family Medicine; Visit Provider Student in an Organized Health Care Education/Training Program
PROC: (CPT 26055; principal; 2020-09-26 07:30)
DX: M65.342 Trigger finger, left ring finger (principal); M65.332 Trigger finger, left middle finger
CPT/HCPCS: 26055 ×2

== ENCOUNTER → 2020-10-05 09:57 | Outpatient (BNVA) | payer MEDICARE, MEDICAID, SELFPAY | PROVIDERS: PCP Family Medicine; Referring Provider Family Medicine; Visit Provider Physician Assistant | DX: Z47.89 Encounter for other orthopedic aftercare (principal) ==

== ENCOUNTER 2020-10-10 20:04 | Outpatient (REF) | payer MEDICARE, MEDICAID, SELFPAY ==
[2020-10-10 20:25] LABS: Abs Immature Grans 0.02 10^3/uL (0.0-0.06); Absolute Basophil Count 0.04 10^3/uL (0.0-0.2); Absolute Eosinophil Count 0.33 10^3/uL (0.0-0.7); Absolute Lymphocyte Count 0.67 10^3/uL (1.2-3.4); Absolute Neutrophil Count 6.23 10^3/uL (1.2-6.7); Basophils % 0.5; Eosinophils % 4.1; HCT 36.2 % (36.0-46.0); HGB 11.3 g/dL (11.2-15.7); Immature Grans % 0.3; Lymphocytes % 8.4; MCH 29.4 pg (27.0-33.0); MCHC 31.2 % (32.0-36.0); MPV 10.3 fL (8.0-11.0); Monocytes % 8.8; Neutrophils % 77.9; Nucleated RBC 0 %; Platelet Count 300 10^3/uL (130-400); RBC 3.85 10^6/uL (3.93-5.22); RDW-SD 44.7 fL; WBC 7.99 10^3/uL (4.4-10.8)
[2020-10-10 20:38] LABS: ALT 23 U/L (14-59); AST 16 U/L (15-37); Albumin 3.4 g/dL (3.4-5.0); Alkaline Phosphatase 128 U/L (46-116); Anion Gap 8.6 mmol/L (3-11); BUN 18 mg/dL (7-18); Bilirubin, Total 0.3 mg/dL (0.2-1.0); CO2 27.4 mmol/L (21.0-32.0); CREATININE 0.9 mg/dL (0.55-1.02); Calcium 9.4 mg/dL (8.5-10.1); Chloride 105 mmol/L (98-107); Glucose 126 mg/dL (74-106); Potassium 4.4 mmol/L (3.5-5.1); Sodium 141 mmol/L (136-145); Total Protein 6.8 g/dL (6.4-8.2)
[2020-10-10 20:50] LABS: Iron 45 ug/dL (50-170); Total Iron Binding Capacity 297 ug/dL (250-450); Transferrin Sat 15 % (15-50)
[2020-10-10 21:07] LABS: Ferritin 57 ng/mL (8-252)
== END 2020-10-10 20:05 | disposition home or self-care (01) ==
LOC: NCHCN 20:04
PROVIDERS: PCP Family Medicine; Visit Provider Family Medicine
DX: D50.9 Iron deficiency anemia, unspecified (principal); E11.9 Type 2 diabetes mellitus without complications; Z79.84 Long term (current) use of oral hypoglycemic drugs
CPT/HCPCS: 80053; 82728; 83540; 83550; 85025

== ENCOUNTER → 2020-11-15 09:14 | Outpatient (BNVA) | payer MEDICARE, MEDICAID, SELFPAY | PROVIDERS: PCP Family Medicine; Referring Provider Family Medicine; Visit Provider Physician Assistant | DX: Z47.89 Encounter for other orthopedic aftercare (principal); M65.342 Trigger finger, left ring finger; M65.332 Trigger finger, left middle finger ==

== ENCOUNTER 2020-11-27 10:11 | Outpatient (CLI) | payer MEDICARE, MEDICAID, SELFPAY ==
[2020-11-27 10:22] VITALS: BP 105/64; PULSE 70; RESP 18; TEMP 36.4; O2SAT 98
--- NOTE | 2020-11-27 11:06 | PDOC.PAIN ---
Pain Clinic Procedure Note Procedure Note Procedure Note: patient presents for diagnostic genicular nerve block for chronic bilateral knee pain. patient is scheduled for right knee block. During pre-procedure check in, patient was noted to have blood pressure slightly lower than her baseline with SBP 100 and recheck was 120 and diastolic in 50/60 range. patient reports feeling a bit off and brief episode of having to catch her balance when she was transferring in and out of the car this morning. she did eat breakfast and took her normal medications. fingerstick with glucose was 146. Patient als reports that her knee pain is not severe today. she reports currently, her right knee pain is at most around a 4 out of 10, if that. She stated typically my knee pain is much more than today, I am not sure if I should do this today or wait until it hurts more so I get a better idea if this works. I explained to patient that the purpose of a diagnostic genicular nerve block is to compare the difference pre and post procedure, typically we would want the symptomatic knee to be at moderate to severe pain level. I asked patient which type of activities typically set off her knee pain, she reported standing for a long time, or walking. I asked patient to walk around the corridor of [facility] in an attempt to increase her baseline pain level. She was accompanied by our RN Ms Temitope Barillas. This unfortunately was not able to increase her knee pain. Patient reported that she would like to reschedule today's procedure and plans to increase her physical activity to get her knee pain to be at a moderate level so it allows for accurate reflection of the change in pain level with diagnostic nerve block. She is directed to scheduling team to reschedule the appointment. Benedict Leblanc MD Pain Management
== END 2020-11-27 10:12 | disposition home or self-care (01) ==
LOC: PC 10:11
PROVIDERS: PCP Family Medicine; Visit Provider Internal Medicine
DX: R69 Illness, unspecified (principal)

== ENCOUNTER 2020-11-28 08:41 | Outpatient (CLI) | payer MEDICARE, MEDICAID, SELFPAY ==
[2020-11-28 09:36] LABS: Abs Immature Grans 0.03 10^3/uL (0.0-0.06); Absolute Basophil Count 0.03 10^3/uL (0.0-0.2); Absolute Lymphocyte Count 0.63 10^3/uL (1.2-3.4); Absolute Monocyte Count 0.76 10^3/uL (0.1-0.8); Absolute Neutrophil Count 4.94 10^3/uL (1.2-6.7); Basophils % 0.4; Eosinophils % 4.5; HCT 35.4 % (36.0-46.0); HGB 10.9 g/dL (11.2-15.7); Immature Grans % 0.4; Lymphocytes % 9.4; MCH 29.3 pg (27.0-33.0); MCHC 30.8 % (32.0-36.0); MCV 95.2 fL (80-95); MPV 9.1 fL (8.0-11.0); Monocytes % 11.4; Neutrophils % 73.9; Nucleated RBC 0 %; Platelet Count 291 10^3/uL (130-400); RBC 3.72 10^6/uL (3.93-5.22); WBC 6.69 10^3/uL (4.4-10.8)
[2020-11-28 09:54] LABS: ALT 25 U/L (14-59); AST 17 U/L (15-37); Albumin 3.3 g/dL (3.4-5.0); Alkaline Phosphatase 118 U/L (46-116); Anion Gap 9.1 mmol/L (3-11); BUN 18 mg/dL (7-18); Bilirubin, Total 0.4 mg/dL (0.2-1.0); CO2 26.9 mmol/L (21.0-32.0); Calcium 9.2 mg/dL (8.5-10.1); Chloride 105 mmol/L (98-107); Estimated GFR 54.05 (mL/min/1.73m2); Glucose 119 mg/dL (74-106); LDH 119 U/L (81-234); Potassium 4.6 mmol/L (3.5-5.1); Sodium 141 mmol/L (136-145); Total Protein 7.3 g/dL (6.4-8.2)
[2020-11-28 10:17] LABS: Ferritin 86 ng/mL (8-252)
[2020-11-28 10:38] LABS: Iron 61 ug/dL (50-170); Total Iron Binding Capacity 310 ug/dL (250-450); Transferrin Sat 20 % (15-50)
== END 2020-11-28 08:42 | disposition home or self-care (01) ==
LOC: LBO 08:44
PROVIDERS: PCP Family Medicine; Visit Provider Internal Medicine Hematology & Oncology
DX: C85.89 Other specified types of non-Hodgkin lymphoma, extranodal and solid organ sites (principal)
CPT/HCPCS: 36415; 80053; 82728; 83540; 83550; 83615; 85025

== ENCOUNTER → 2020-12-12 07:25 | Outpatient (BNVA) | payer MEDICARE, MEDICAID, SELFPAY | PROVIDERS: PCP Family Medicine; Referring Provider Family Medicine; Visit Provider Nurse Practitioner Adult Health | DX: R69 Illness, unspecified (principal) ==

== ENCOUNTER → 2020-12-17 07:39 | Outpatient (BNVA) | payer MEDICARE, MEDICAID, SELFPAY | PROVIDERS: PCP Family Medicine; Referring Provider Family Medicine; Visit Provider Nurse Practitioner Adult Health | DX: E11.40 Type 2 diabetes mellitus with diabetic neuropathy, unspecified (principal); Z79.899 Other long term (current) drug therapy | CPT/HCPCS: 99213; 99215 ==

== ENCOUNTER 2021-01-24 12:41 | Outpatient (REF) | payer MEDICARE, MEDICAID, SELFPAY ==
[2021-01-24 14:28] LABS: COMMENT (LAB VIEW ONLY) 158.22 mg/dL; Microalb ug/mg Crea 53.5 ug/mg Cr
== END 2021-01-24 12:42 | disposition home or self-care (01) ==
LOC: NCHCN 12:41
PROVIDERS: PCP Family Medicine; Visit Provider Family Medicine
DX: E11.9 Type 2 diabetes mellitus without complications (principal)
CPT/HCPCS: 82043; 82570

== ENCOUNTER → 2021-01-28 13:18 | Outpatient (BNVA) | payer MEDICARE, MEDICAID, SELFPAY | PROVIDERS: PCP Family Medicine; Referring Provider Family Medicine; Visit Provider Nurse Practitioner Adult Health | DX: E11.40 Type 2 diabetes mellitus with diabetic neuropathy, unspecified (principal) | CPT/HCPCS: 99212 ==

== ENCOUNTER 2021-05-29 01:38 | Outpatient (CLI) | payer MEDICARE, MEDICAID, SELFPAY ==
[2021-05-29 09:16] LABS: Abs Immature Grans 0.03 10^3/uL (0.0-0.06); Absolute Basophil Count 0.04 10^3/uL (0.0-0.2); Absolute Eosinophil Count 0.32 10^3/uL (0.0-0.7); Absolute Lymphocyte Count 0.94 10^3/uL (1.2-3.4); Absolute Monocyte Count 0.91 10^3/uL (0.1-0.8); Absolute Neutrophil Count 4.84 10^3/uL (1.2-6.7); Basophils % 0.6; Eosinophils % 4.5; HCT 35.9 % (36.0-46.0); HGB 10.8 g/dL (11.2-15.7); Immature Grans % 0.4; Lymphocytes % 13.3; MCH 29.1 pg (27.0-33.0); MCHC 30.1 % (32.0-36.0); MCV 96.8 fL (80-95); MPV 8.9 fL (8.0-11.0); Monocytes % 12.9; Neutrophils % 68.3; Nucleated RBC 0 %; Platelet Count 325 10^3/uL (130-400); RBC 3.71 10^6/uL (3.93-5.22); RDW 13.2 % (11.7-14.6); RDW-SD 46.9 fL; WBC 7.08 10^3/uL (4.4-10.8)
[2021-05-29 09:30] LABS: ALT 19 U/L (14-59); AST 15 U/L (15-37); Albumin 3.3 g/dL (3.4-5.0); Alkaline Phosphatase 116 U/L (46-116); Anion Gap 8.8 mmol/L (3-11); BUN 24 mg/dL (7-18); Bilirubin, Total 0.3 mg/dL (0.2-1.0); CO2 29.2 mmol/L (21.0-32.0); CREATININE 0.9 mg/dL (0.55-1.02); Chloride 103 mmol/L (98-107); Glucose 125 mg/dL (74-106); LDH 139 U/L (81-234); Potassium 4.2 mmol/L (3.5-5.1); Sodium 141 mmol/L (136-145); Total Protein 7.4 g/dL (6.4-8.2)
[2021-05-29 09:58] LABS: Ferritin 41 ng/mL (8-252)
[2021-05-29 10:44] LABS: Iron 46 ug/dL (50-170); Total Iron Binding Capacity 326 ug/dL (250-450); Transferrin Sat 14 % (15-50)
[2021-05-30 10:08] LABS: IgA 210 mg/dL (85-499); IgG 885 mg/dL (610-1,616); IgM 89 mg/dL (35-242)
== END 2021-05-29 01:39 | disposition home or self-care (01) ==
LOC: LBO 01:38
PROVIDERS: PCP Family Medicine; Visit Provider Internal Medicine Hematology & Oncology
DX: D50.9 Iron deficiency anemia, unspecified (principal); C85.89 Other specified types of non-Hodgkin lymphoma, extranodal and solid organ sites
CPT/HCPCS: 36415; 80053; 82784; 82728; 83540; 83550; 83615; 85025

== ENCOUNTER 2021-08-05 19:58 | Outpatient (REF) | payer MEDICARE, MEDICAID, SELFPAY ==
[2021-08-05 09:40] LABS: Abs Immature Grans 0.03 10^3/uL (0.0-0.06); Absolute Basophil Count 0.05 10^3/uL (0.0-0.2); Absolute Eosinophil Count 0.29 10^3/uL (0.0-0.7); Absolute Lymphocyte Count 0.95 10^3/uL (1.2-3.4); Absolute Monocyte Count 0.71 10^3/uL (0.1-0.8); Absolute Neutrophil Count 4.96 10^3/uL (1.2-6.7); Basophils % 0.7; Eosinophils % 4.1; HCT 36.3 % (36.0-46.0); HGB 11.4 g/dL (11.2-15.7); Immature Grans % 0.4; Lymphocytes % 13.6; MCH 29.3 pg (27.0-33.0); MCHC 31.4 % (32.0-36.0); MCV 93.3 fL (80-95); MPV 9.4 fL (8.0-11.0); Monocytes % 10.2; Nucleated RBC 0 %; Platelet Count 374 10^3/uL (130-400); RBC 3.89 10^6/uL (3.93-5.22); RDW 13.4 % (11.7-14.6); WBC 6.99 10^3/uL (4.4-10.8)
[2021-08-05 09:49] LABS: Iron 65 ug/dL (50-170); Total Iron Binding Capacity 302 ug/dL (250-450); Transferrin Sat 22 % (15-50)
[2021-08-05 10:09] LABS: ALT 19 U/L (14-59); AST 16 U/L (15-37); Albumin 3.4 g/dL (3.4-5.0); Alkaline Phosphatase 112 U/L (46-116); Anion Gap 8.4 mmol/L (3-11); BUN 19 mg/dL (7-18); Bilirubin, Total 0.4 mg/dL (0.2-1.0); CO2 28.6 mmol/L (21.0-32.0); CREATININE 0.9 mg/dL (0.55-1.02); Calcium 9.3 mg/dL (8.5-10.1); Chloride 102 mmol/L (98-107); Ferritin 73 ng/mL (8-252); Glucose 113 mg/dL (74-106); Potassium 4.4 mmol/L (3.5-5.1); Sodium 139 mmol/L (136-145); Total Protein 7.5 g/dL (6.4-8.2)
[2021-08-05 10:19] LABS: LDH 141 U/L (81-234)
[2021-08-06 08:48] LABS: IgA 220 mg/dL (85-499); IgG 816 mg/dL (610-1,616); IgM 90 mg/dL (35-242)
== END 2021-08-05 19:59 | disposition home or self-care (01) ==
LOC: NCHCN 19:58
PROVIDERS: PCP Family Medicine; Visit Provider Family Medicine
DX: D50.9 Iron deficiency anemia, unspecified (principal); Z85.79 Personal history of other malignant neoplasms of lymphoid, hematopoietic and related tissues
CPT/HCPCS: 80053; 82784; 82728; 83540; 83550; 83615; 85025

== ENCOUNTER 2021-08-07 02:36 | Outpatient (CLI) | payer MEDICARE, MEDICAID, SELFPAY | END 2021-08-07 02:37 | disposition home or self-care (01) | LOC: LBO 02:40 | PROVIDERS: PCP Family Medicine; Visit Provider Internal Medicine Hematology & Oncology ==

== ENCOUNTER → 2021-11-06 01:25 | Outpatient (CLI) | payer MEDICARE, MEDICAID, SELFPAY ==
--- NOTE | 2021-11-06 10:28 | DI.US_ITS ---
APPROVED REPORT EXAM: Comprehensive 2D, Doppler, and color-flow Echocardiogram Patient Location: Out-Patient Business Control Specialist: Indiana Gaitan RDCS (AE) Indications: f/u Moderate aortic regurgitation,fatigue Other Information Study Quality: Adequate Conclusion Normal left ventricular wall thickness and chamber size. Estimated ejection fraction is 60%. Wall m otion is normal Normal right ventricular size and systolic function Both atria are normal in size Aortic valve is calcified. The number of aortic valve leaflets could not be accurately determined. There is mild aortic stenosis. Peak gradient is 25, mean 14 mmHg. Calculated aortic valve area is 1 .42 cm??. There is trace aortic regurgitation Mild mitral annular calcification with trace regurgitation Normal tricuspid valve with mild regurgitation. Estimated right ventricular systolic pressure is 27 mmHg Dilated ascending aorta measuring 3.46 cm Wall motion Left Ventricle The left ventricle is normal size. The left ventricular systolic function is normal. The left ventric ular ejection fraction is within the normal range. There is normal left ventricular wall thickness. T here is normal LV segmental wall motion. There is no ventricular septal defect visualized. LVEF is 60 %. Right Ventricle The right ventricle is normal size. The right ventricular systolic function is normal. The RVSP is 27 .5mmHg. Atria The left atrium size is normal. The right atrium size is normal. The interatrial septum is intact wit h no evidence for an atrial septal defect. Aortic Valve Aortic valve is calcified. Number of aortic valve leaflets could not be assessed. Mild aortic stenosi s. Peak aortic valve gradient is 25.2mmHg. Highest mean aortic valve gradient is 14.2mmHg. Calculated YASMEEN by the continuity equation is 1.42cm2. Trace aortic regurgitation. Mitral Valve Mild mitral annular calcification. No evidence of mitral valve stenosis. Trace mitral regurgitation. Tricuspid Valve The tricuspid valve is normal in structure. There is no tricuspid valve stenosis. Mild tricuspid regu rgitation. Pulmonic Valve The pulmonary valve is normal in structure. There is no pulmonic valvular stenosis. Mild pulmonic reg urgitation. Great Vessels The aortic root is normal in size. The ascending aorta is mildly dilated. Aortic arch is normal in ca liber. IVC is normal in size and collapses >50% with inspiration. Pericardium There is no pericardial effusion. 2D Dimensions IVSD d PLAX 1.04 cm F: 0.6-1.0 LV Vol A2C d MOD 113.2 mL LVPW d PLAX 1.02 cm F: 0.6 - 1.0 LV Vol A4C d MOD 96.4 mL LVID d PLAX 4.40 cm F: 3.8 - 5.2 LA vol/ BSA A2C s A-L 28.7 mL/m2 LVDs 2.90 cm F: 2.2 - 3.5 LA vol/ BSA A4C s A-L 20.9 mL/m2 Ao Root d 2.70 cm F: 2.7 - 3.3 LA Vol/ BSA Biplane s A-L 25.0 mL/m2 RA Area A4C 14.96 cm2 LA Area A4C s MOD 16.47 cm2 RA Vol/ BSA A4C s A-L 21.1 mL/m2 LA Area A2C s MOD 18.92 cm2 Ao Asc Diam d 3.46 cm F: 2.3 - 3.1 LV EF A4C MOD 60.7 % LV EF Teichholz 63.0 % LV EF A2C MOD 60.4 % LVEF (Reyes's) 60.81 % F: 54 - 74 LV EF Biplane MOD 60.8 % LV Volume 79.86 mL F: 46 - 106 SV 64.67 mL LV Volume Index 40.13 mL/m2 F: 29 - 61 SV Index 32.45 mL/m2 LV Vol Biplane MOD 106.3 mL FS 33.85 % M-Mode TAPSE 2.24 cm (M/F) >1.7 LV Diastology MV E' medial 0.046 (>0.07 m/s) E/A Ratio 0.8 LV E/e MED 14.05 (<14) MV E Vmax 0.65 (0.4-1.3 m/s) MV E' lateral 0.052 (>0.1 m/s) MV A Vmax 0.85 (0.4-1.3 m/s) LV E/e LAT 12.60 (<14) MV E/A Ratio 0.75 MV E/E' medial 14.09 MV E/E' lateral 12.62 Aortic Valve LVOT Area 3.27 cm2 AoV Area Vmax 1.42 cm2 LVOT Vmax 1.09 m/s AoV Area/ BSA (Vmax) 0.71 cm2/m2 LVOT Mean Mendez. 0.70 m/s YASMEEN Mean Mendez. 1.29 cm2 LVOT Peak Grad 4.8 mmHg YASMEEN Mean Mendez. Index 0.65 cm2/m2 LVOT Mean Grad 2.3 mmHg AR DT 1863 msec LVOT VTI 0.254 m AR PHT 540 msec LVOT Diam s 2.00 cm AoV Vmax 2.51 m/s Velocity Ratio 0.43 AoV Mean Mendez. 1.79 m/s AoV Peak Grad 25.2 mmHg LVOT SV 83.01 mL AoV Mean Grad 14.2 mmHg AoV VTI 0.556 m AoV Area VTI 1.49 cm2 AoV Area/ BSA (VTI) 0.75 cm/m2 Mitral Valve MV DT 419 (160-240 msec) MV PHT 121 msec MV Area PHT 1.81 cm2 MV VTI 0.377 m MV Area VTI 2.20 (4.0-6.0 cm2) Pulmonary Valve PV Vmax 0.85 (0.5-1.5 m/s) RVOT Peak Gr. 1.76 mmHg PV Peak Grad 2.9 mmHg RVOT Mean Gr. 0.90 mmHg PV Mean Grad 1.6 mmHg RVOT VTI 0.163 m PV VTI 0.196 m RVOT Vmax 0.66 m/s Tricuspid Valve TR Peak Grad 24.4 mmHg TR Vmax 2.47 m/s RA Pressure 3.00 mmHg RVSP (TR) 27.5 mmHg
== END ==
PROVIDERS: PCP Family Medicine; Visit Provider Family Medicine
DX: I35.1 Nonrheumatic aortic (valve) insufficiency (principal)
CPT/HCPCS: 93306

== ENCOUNTER 2021-12-16 14:54 | Outpatient (REF) | payer MEDICARE, MEDICAID, SELFPAY ==
[2021-12-16 15:08] LABS: HCT 34.8 % (36.0-46.0); HGB 11.1 g/dL (11.2-15.7); MCH 29.9 pg (27.0-33.0); MCHC 31.9 % (32.0-36.0); MCV 94 fL (80-95); MPV 10.1 fL (8.0-11.0); Platelet Count 337 10^3/uL (130-400); RBC 3.71 10^6/uL (3.93-5.22); RDW 13.5 % (11.7-14.6); WBC 7.82 10^3/uL (4.4-10.8)
[2021-12-16 15:44] LABS: Ferritin 41 ng/mL (8-252)
[2021-12-16 16:34] LABS: Hemoglobin A1C 6.4 % (<5.7)
== END 2021-12-16 14:55 | disposition home or self-care (01) ==
LOC: NCHCN 14:54
PROVIDERS: PCP Family Medicine; Visit Provider Family Medicine
DX: E11.9 Type 2 diabetes mellitus without complications (principal); D50.9 Iron deficiency anemia, unspecified
CPT/HCPCS: 85027; 82728; 83036

== ENCOUNTER 2021-12-20 18:09 | Outpatient (REF) | payer MEDICARE, MEDICAID, SELFPAY ==
[2021-12-20 22:04] LABS: Albumin ug/mg Crea 49 (<30); Albumin, Ur 3.4 mg/dL (See Note); Creatinine, Ur 68.9 mg/dL (See Note)
== END 2021-12-20 18:10 | disposition home or self-care (01) ==
LOC: NCHCN 18:09
PROVIDERS: PCP Family Medicine; Visit Provider Family Medicine
DX: E11.9 Type 2 diabetes mellitus without complications (principal)
CPT/HCPCS: 82043; 82570

== ENCOUNTER 2022-03-12 03:36 | Outpatient (CLI) | payer MEDICARE, MEDICAID, SELFPAY ==
[2022-03-12 10:18] LABS: Abs Immature Grans 0.03 10^3/uL (0.0-0.06); Absolute Basophil Count 0.03 10^3/uL (0.0-0.2); Absolute Eosinophil Count 0.28 10^3/uL (0.0-0.7); Absolute Lymphocyte Count 0.84 10^3/uL (1.2-3.4); Absolute Monocyte Count 0.73 10^3/uL (0.1-0.8); Absolute Neutrophil Count 5.25 10^3/uL (1.2-6.7); Basophils % 0.4; Eosinophils % 3.9; HCT 35.3 % (36.0-46.0); HGB 11.1 g/dL (11.2-15.7); Immature Grans % 0.4; Lymphocytes % 11.7; MCH 29.8 pg (27.0-33.0); MCHC 31.4 % (32.0-36.0); MCV 95 fL (80-95); MPV 8.8 fL (8.0-11.0); Monocytes % 10.2; Neutrophils % 73.4; Platelet Count 366 10^3/uL (130-400); RBC 3.72 10^6/uL (3.93-5.22); RDW 13.9 % (11.7-14.6); WBC 7.16 10^3/uL (4.4-10.8)
[2022-03-12 10:46] LABS: ALT 17 U/L (14-59); AST 19 U/L (15-37); Albumin 3.4 g/dL (3.4-5.0); Alkaline Phosphatase 114 U/L (46-116); Anion Gap 7.7 mmol/L (3-11); BUN 20 mg/dL (7-18); Bilirubin, Total 0.4 mg/dL (0.2-1.0); CO2 29.3 mmol/L (21.0-32.0); Calcium 9.4 mg/dL (8.5-10.1); Chloride 102 mmol/L (98-107); Estimated GFR 58.39 (mL/min/1.73m2); Ferritin 41 ng/mL (8-252); Glucose 112 mg/dL (74-106); Potassium 4.4 mmol/L (3.5-5.1); Sodium 139 mmol/L (136-145); Total Protein 7.4 g/dL (6.4-8.2)
[2022-03-12 11:01] LABS: LDH 132 U/L (81-234)
[2022-03-12 11:19] LABS: Iron 62 ug/dL (50-170); Total Iron Binding Capacity 336 ug/dL (250-450); Transferrin Sat 18 % (15-50)
== END 2022-03-12 03:37 | disposition home or self-care (01) ==
LOC: LBO 03:36
PROVIDERS: PCP Family Medicine; Visit Provider Internal Medicine Hematology & Oncology
DX: D50.9 Iron deficiency anemia, unspecified (principal); C85.89 Other specified types of non-Hodgkin lymphoma, extranodal and solid organ sites
CPT/HCPCS: 36415; 80053; 82728; 83540; 83550; 83615; 85025

== ENCOUNTER 2022-07-16 17:51 | Emergency (ER) | payer MEDICARE, MEDICAID, SELFPAY ==
[2022-07-16 18:08] VITALS: BP 118/91; PULSE 80; RESP 18; TEMP 37.2; O2SAT 99
--- NOTE | 2022-07-16 18:15 | DI.RAD_ITS ---
Exam(s) XR WRIST LT COMP NAVICULAR EXAM: XR WRIST LT COMP NAVICULAR CLINICAL HISTORY: distal radius pain and scaphoid pain after fall. TECHNIQUE: 2D digital imaging was performed. Three views. COMPARISON: No exams were available for comparison FINDINGS: BONES: No acute fracture is present. No bony destructive lesion is seen. JOINTS: The carpal bones are normally aligned. Mild degenerative changes. Chondrocalcinosis visibl e at the triangular fibrocartilage. SOFT TISSUE: Swelling around carpal region. IMPRESSION: Soft tissue swelling. DATA REPOSITORY: RADIATION DOSE DELIVERED:
--- NOTE | 2022-07-16 18:15 | DI.RAD_ITS ---
Exam(s) XR TIB/FIB RT EXAM: XR TIB/FIB RT CLINICAL HISTORY: mid fib pain after fall. TECHNIQUE: 2D digital imaging was performed. Two views. COMPARISON: CR XR KNEE RT 3V AP,LAT,SHARON from 07/01/2019 CR,XR XR WRIST LT COMP NAVICULAR from 07/16/2022 CR,XR XR TIB/FIB RT from 07/16/2022 CR,XR XR KNEE LT 3V AP,LAT,SHARON from 07/16/2022 FINDINGS: BONES: Nondisplaced fracture proximal fibula. No additional fractures seen. No bony destructive les ion is seen. Degenerative changes noted at the knee. Joint effusion suspected. SOFT TISSUE: Soft tissue swelling around the ankle. IMPRESSION: Nondisplaced fracture proximal fibula. Findings called to Dr. Bush, emergency department provider July 24 9 a.m.. DATA REPOSITORY: RADIATION DOSE DELIVERED:
--- NOTE | 2022-07-16 18:45 | DI.RAD_ITS ---
Exam(s) XR KNEE LT 3V AP,LAT,SHARON EXAM: XR KNEE LT 3V AP,LAT,SHARON CLINICAL HISTORY: fall, mid knee pain. TECHNIQUE: 2D digital imaging was performed. Three views. COMPARISON: CR XR KNEE RT 3V AP,LAT,SHARON from 07/01/2019 FINDINGS: BONES: No acute fracture is present. No bony destructive lesion is seen. JOINTS: Degenerative changes greater at the lateral femoral tibial joint. Chondrocalcinosis. A mode rate joint effusion is seen. SOFT TISSUE: Normal. IMPRESSION: Joint effusion. Degenerative changes. DATA REPOSITORY: RADIATION DOSE DELIVERED:
--- NOTE | 2022-07-16 18:47 | ED.GENADUL_ITS ---
Discharge Plan Disposition Patient Disposition: Home Discharge Details Clinical Impression: Left wrist sprain, Pain of right calf Primary Care Provider: Mary Larson ED Provider: Kumar Carranza Home Meds and New Rx's Prescriptions: New lidocaine [Lidoderm] 5 % adhesive patch,medicated 1 patch Topical Q24H Qty: 15 0RF No Action ibuprofen 600 mg tablet 600 mg PO Q6H PRN (Reason: pain) Trulicity 0.75 mg/0.5 mL pen injector 0.75 mg subcut QWEEK metformin 1,000 mg tablet 500 mg PO BID amlodipine 5 mg tablet 5 mg PO DAILY lisinopril-hydrochlorothiazide 20-25 mg tablet 2 tab PO DAILY simvastatin 20 mg tablet 20 mg PO QHS ketoconazole 2 % cream 1 applic TP DAILY PRN folic acid 400 mcg tablet 0.4 mg PO DAILY cholecalciferol (vitamin D3) 25 mcg (1,000 unit) capsule 1,000 unit PO DAILY aspirin 81 mg tablet,delayed release (DR/EC) 81 mg PO DAILY AM cyanocobalamin (vitamin B-12) [B-12 DOTS] 500 mcg tablet 1,000 mcg PO .everyotherday lidocaine 5 % cream 1 applic topical Q4H PRN PRN (Reason: pain) Qty: 30 3RF Rx Instructions: apply small amount to legs prn pain q4hr gabapentin 300 mg capsule 300 mg PO DAILY Qty: 30 3RF Patient Comments: patient no longer taking Rx Instructions: Take mid-day in addition to 800 mg BID. magnesium oxide 500 mg tablet 500 mg PO DAILY duloxetine 20 mg capsule,delayed release(DR/EC) 20 mg PO DAILY gabapentin 800 mg tablet 800 mg PO BID acetaminophen 500 mg capsule 1,000 mg PO Q8H PRN PRNQty: 90 0RF Discharge Instructions Instructions: Musculoskeletal Pain (ED), Leg Pain (ED) Additional Instructions: At this time as we discussed there is thankfully no clear evidence of fracture or other significant abnormality for the osseous/bone structures in your leg or wrist. I am concerned that you may have damage or mild injury to one of the superficial muscles on the outside of your calf. Please use your cane as we discussed together. As we discussed the walker may be helpful as well. If you still have persistent pain over the next 7 to 10 days then you may require further orthopedic follow-up on an outpatient basis. Please ice the area frequently, use the Lidoderm patches as prescribed. If you notice any worsening of your symptoms, or any new symptoms such as vomiting, diarrhea, fever, chills, shortness of breath, chest pain, numbness, weakness, or fainting , please return immediately to the emergency department for reevaluation. Please follow up with your primary care provider as soon as possible for reassessment and reevaluation. As always, it was a pleasure participating in your medical care today. Referrals: Mary Larson MD [Primary Care Provider] - Medical Decision Making 77-year-old female with a past medical history of high cholesterol, hypertension, aortic stenosis, presents today for evaluation of right lower extremity pain, left knee pain, and left wrist pain after fall. Patient states that she was walking down the steps and when she was on the third step she tripped fell forward and landed on her left outstretched wrist, and hit her left knee and left calf/leg. Patient admits to pain in the mid calf and fibula region. She also has mild pain in the left distal radius, and the left knee. Pain is made worse with movement. Improved by nothing. She has not taken any NSAIDs. No numbness or tingling. No other complaints at this time. She did not hit her head. She had no loss of consciousness. She is on no blood thinners. Physical exam demonstrates mild tenderness over the mid fibula, no significant knee or ankle tenderness on the right. Patient does demonstrate minimal tenderness on the left knee, and also pain and tenderness over the left scaphoid. No significant deformities otherwise. No significant swelling. Differential is highest for mild fracture or bruise/contusion of these areas. No other evidence of trauma or significant injury for the hips, chest, back, abdomen, pelvis, feet, head or neck. We will give a gram of Tylenol for treatment of pain. We will monitor closely and reassess. 8:19 PM X-ray results are negative for acute process per virtual radiology. No evidence of fracture. On reassessment the patient's wrist feels well, no evidence of scaphoid injury on x-ray. Knees are reassuring and unremarkable, however patient still has pain in the lateral/posterior calf. Fibula is negative for evidence of fracture. I do suspect that the patient may have incurred an injury to the soleus or peroneus longus which is causing the pain. Lidoderm patch has been applied. Patient states that when she was home and icing the area did notably resolve the pain. The patient does ambulate with mild limp. I did discuss giving the patient a walker for home but she has declined and would rather use her home cane. Additionally I did offer to contact and call her son-in-law Dr. Gallegos, however she has declined this at this time and has requested that I do not call him as he is currently on vacation. Patient will be discharged with continued recommendation for NSAIDs at home, Lidoderm patch, and cane use. If she has persistent pain over the next 5 to 7 days then she may require further assessment with orthopedics. I did discuss with the patient her potential home plan at this time, as she states she does have 2 or 3 friends which she has already contacted and they will be able to help her at home until her family members return from their vacation. She feels comfortable with the plan and does not want any additional assistance from us at this time. Otherwise at this time I see no evidence of significant joint laxity, or muscular deficit. We will discussed red flags for which to return. I have extensively reviewed the treatment plan and discharge instructions with the patient and their family. I have addressed all patient concerns at this time. The patient and family was made aware of what symptoms to monitor for that would warrant a return to the emergency department. Discussed the plan with the patient and family, they demonstrate verbal understanding and agreement with our assessment and plan at this time. The documentation in this chart was dictated using [employer] dictation software. Please excuse any dictation errors. FINDINGS: Bones/joints: Osseous alignment is normal. No acute fracture. Specifically, the carpal navicular appears intact No significant arthritic change. Soft tissues: Normal. IMPRESSION: Normal appearance of the carpal navicular Thank you for allowing us to participate in the care of your patient. Dictated and Authenticated by: Dane Batista MD 07/16/2022 8:14 PM Eastern Time ([place] & [place]) FINDINGS: Bones/joints: Moderate degenerative changes noted in the right knee. Osseous alignment is normal. No acute fracture Soft tissues: Normal. IMPRESSION: No acute abnormality. Moderate osteoarthritis of the right knee. Thank you for allowing us to participate in the care of your patient. Dictated and Authenticated by: Dane Batista MD 07/16/2022 7:35 PM Eastern Time ([place] & [place]) FINDINGS: Bones/joints: Osseous alignment is normal. No acute fracture. There is a moderate amount of joint fluid. There is mild tricompartmental joint space narrowing and osteophyte formation. Soft tissues: Normal. IMPRESSION: Mild osteoarthritis and moderate joint effusion Thank you for allowing us to participate in the care of your patient. Dictated and Authenticated by: Dane Batista MD 07/16/2022 7:36 PM Eastern Time ([place] & [place]) HPI General Date/Time Provider Initiated Documentation: 07/16/22 17:55 . HPI Narrative: 77-year-old female with a past medical history of high cholesterol, hypertension, aortic stenosis, presents today for evaluation of right lower extremity pain, left knee pain, and left wrist pain after fall. Patient states that she was walking down the steps and when she was on the third step she tripped fell forward and landed on her left outstretched wrist, and hit her left knee and left calf/leg. Patient admits to pain in the mid calf and fibula region. She also has mild pain in the left distal radius, and the left knee. Pain is made worse with movement. Improved by nothing. She has not taken any NSAIDs. No numbness or tingling. No other complaints at this time. She did not hit her head. She had no loss of consciousness. She is on no blood thinners. Related Data Home Medications Medication Instructions Recorded Confirmed amlodipine 5 mg tablet 5 mg PO DAILY 06/08/19 07/16/22 aspirin 81 mg tablet,delayed 81 mg PO DAILY AM 06/08/19 07/16/22 release cholecalciferol (vitamin D3) 25 1,000 unit PO DAILY 06/08/19 07/16/22 mcg (1,000 unit) capsule folic acid 400 mcg tablet 0.4 mg PO DAILY 06/08/19 07/16/22 ketoconazole 2 % topical cream 1 applic topical DAILY PRN 06/08/19 07/16/22 lisinopril 20 2 tab PO DAILY 06/08/19 07/16/22 mg-hydrochlorothiazide 25 mg tablet metformin 1,000 mg tablet 500 mg PO BID 06/08/19 07/16/22 simvastatin 20 mg tablet 20 mg PO QHS 06/08/19 07/16/22 cyanocobalamin (vitamin B-12) 500 1,000 mcg PO .everyotherday 06/20/19 07/16/22 mcg tablet (B-12 DOTS) gabapentin 300 mg capsule 300 mg PO DAILY #30 caps 09/20/20 07/16/22 lidocaine 5 % topical cream 1 applic topical Q4H PRN PRN pain 09/20/20 07/16/22 #30 grams acetaminophen 500 mg capsule 1,000 mg PO Q8H PRN PRN #90 caps 09/26/20 07/16/22 ibuprofen 600 mg tablet 600 mg PO Q6H PRN pain 10/12/20 07/16/22 dulaglutide 0.75 mg/0.5 mL 0.75 mg subcut QWEEK 10/22/20 07/16/22 subcutaneous pen injector (Trulicity) magnesium oxide 500 mg tablet 500 mg PO DAILY 12/17/20 07/16/22 duloxetine 20 mg capsule,delayed 20 mg PO DAILY 01/28/21 07/16/22 release gabapentin 800 mg tablet 800 mg PO BID 07/16/22 07/16/22 lidocaine 5 % topical patch 1 patch topical Q24H #15 ea 07/16/22 (Lidoderm) Previous Rx's Medication Instructions Recorded gabapentin 300 mg capsule 300 mg PO DAILY #30 caps 09/20/20 lidocaine 5 % topical cream 1 applic topical Q4H PRN PRN pain 09/20/20 #30 grams acetaminophen 500 mg capsule 1,000 mg PO Q8H PRN PRN #90 caps 09/26/20 lidocaine 5 % topical patch 1 patch topical Q24H #15 ea 07/16/22 (Lidoderm) Allergies Allergy/AdvReac Type Severity Reaction Status Date / Time acetaminophen [From Percocet] AdvReac Intermediate Nausea, Verified 12/17/20 09:37 bad dreams per Pt oxycodone [From Percocet] AdvReac Intermediate Nausea, Verified 07/16/22 18:12 bad dreams per Pt General Stated Complaint: Trauma EMILIA: 3 Review of Systems All systems reviewed & are unremarkable except as noted in HPI and below PFSH All Active Problems (Updated 07/16/22 @ 20:29 by Kumar Carranza DO) Left wrist sprain (Acute) Pain of right calf (Acute) Trigger finger, left ring finger (Acute) S/P release: 09/26/2020 Trigger finger, left middle finger (Acute) S/P release: 09/26/2020 Diabetic neuropathy (Acute) Carpal tunnel syndrome on both sides (Acute) Trigger finger, right middle finger (Acute) S/P release: 11/09/2019 Left knee DJD (Acute) Degenerative joint disease of right knee (Chronic) Injection: 10/31/2019; 07/01/2019 Hyperlipidemia (Acute) Hypertension (Chronic) Chest pressure (Acute) Aortic stenosis (Chronic) Medical History Anemia Aortic regurgitation Carpal tunnel syndrome, bilateral Diabetes Greater trochanteric bursitis of right hip Lymphoma 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 Multinodular thyroid Osteoarthritis Osteoarthritis of knees, bilateral Osteopenia Palpitations Shingles Spinal stenosis Thyroid goiter Surgical History History of colonoscopy History of hysterectomy S/P hernia repair S/P lobectomy of lung S/P Mohs surgery for basal cell carcinoma Family History Other Diabetes Hyperlipidemia Hypertension Social History Smoking/Tobacco Use Status: Former Tobacco Use Tobacco: How many years used: 5 Smoking risk assessment performed?: Yes Alcohol Intake: current Alcohol Intake frequency: holidays/special occasions only Alcohol type: wine Drug use: Never Substance use type: does not use Details: Pt quit smoking 1967 Household members: children Housing: house Number of Children: 4 number of grandchildren: 5 current occupation: Homemaker Pets and animals: No Current gender identity: female What is your relationship status?: Panel score (0-1 are the most socially isolated patients): 0 What type of physical activity do you participate in: none and independent ambulation Seatbelt use: always Do you feel safe at home: Yes Exam Narrative Exam Narrative: 1.Const: Well-nourished, Well-developed, appearing stated age 2.Eyes: PERRL, no conjunctival injection, and symmetrical lids. 3.ENT: Atraumatic external nose and ears. Moist MM. Neck: Symmetric, trachea midline, No thyromegaly. 4.CVS: +S1/S2, No murmurs or gallops. Peripheral pulses 2+ and equal in all extremities. Brisk capillary refill in all extremities. 5.RESP: Unlabored respiratory effort. Clear to auscultation bilaterally. No wheezes rales or rhonchi 6.GI: Soft, Nontender/Nondistended, No hepatosplenomegaly. No guarding or rebound. 7.MSK: No evidence of significant trauma. Patient's left wrist demonstrates mild tenderness over the scaphoid. Good range of motion, excellent appeals coordinator strength of all fingers, excellent movement of thumb in all directions. No pain in the elbow or mid forearm. Left knee demonstrates minimal tenderness over the patella and tibial plateau. No significant tenderness though. Good range of motion. No instability. Right knee is unremarkable on exam, however right tibia is also unremarkable with no significant tenderness throughout but the right fibula is tender over the midshaft area. No distal tenderness in the ankle or the foot. 8.Skin: Warm, Dry. No rashes or lesions. 9.Neuro: prepress manager II-XII grossly intact. Sensation grossly intact, no focal neurologic deficits. 10.Psych: (AAO) x3. Appropriate mood and affect Course Vital Signs Vital signs: Vital Signs Temperature 37.2 C 07/16/22 18:08 Pulse 80 07/16/22 18:08 Respiratory Rate 18 07/16/22 18:08 Blood Pressure 118/91 H 07/16/22 18:08 Pulse Oximetry 99 07/16/22 18:08 Temperature 37.2 C 07/16/22 18:08 Temperature Source Oral 07/16/22 18:08 Pulse 80 07/16/22 18:08 Respiratory Rate 18 07/16/22 18:08 Respiratory Effort Normal 07/16/22 18:15 Blood Pressure 118/91 H 07/16/22 18:08 Blood Pressure Position Sitting 07/16/22 18:08 Pulse Oximetry 99 07/16/22 18:08 Oxygen Delivery Method Room Air 07/16/22 18:08 Oxygen Flow Rate 0 07/16/22 18:08 Pain Level 8 07/16/22 18:08
[2022-07-16] MEDS: Acetaminophen 500 MG TAB 1000 MG PO (19:26)
--- NOTE | 2022-07-16 19:36 | DI.VRAD_ITS ---
PROCEDURE INFORMATION: Exam: XR Right Tibia and Fibula Exam date and time: 07/16/2022 7:03 PM Age: 77 years old Clinical indication: Pain; Lower leg; Right TECHNIQUE: Imaging protocol: Radiologic exam of the right tibia and fibula. Views: 2 views. COMPARISON: CR XR KNEE RT 3V AP,LAT,SHARON 07/01/2019 9:23 AM FINDINGS: Bones/joints: Moderate degenerative changes noted in the right knee. Osseous alignment is normal. No acute fracture Soft tissues: Normal. IMPRESSION: No acute abnormality. Moderate osteoarthritis of the right knee. Dictated and Authenticated by: Dane Batista MD. Ordering:MARK Heath MD
--- NOTE | 2022-07-16 19:36 | DI.VRAD_ITS ---
PROCEDURE INFORMATION: Exam: XR Left Knee Exam date and time: 07/16/2022 7:09 PM Age: 77 years old Clinical indication: Pain; Knee; Left TECHNIQUE: Imaging protocol: Radiologic exam of the left knee. Views: 3 views. COMPARISON: CR XR KNEE LT 3V AP,LAT,SHARON 07/01/2019 9:22 AM FINDINGS: Bones/joints: Osseous alignment is normal. No acute fracture. There is a moderate amount of joint fluid. There is mild tricompartmental joint space narrowing and osteophyte formation. Soft tissues: Normal. IMPRESSION: Mild osteoarthritis and moderate joint effusion Dictated and Authenticated by: Dane Batista MD. Ordering:MARK Heath MD
[2022-07-16] MEDS: Lidocaine 5% Patch 1 PATCH TP (19:54)
--- NOTE | 2022-07-16 20:15 | DI.VRAD_ITS ---
PROCEDURE INFORMATION: Exam: XR Left Wrist Exam date and time: 07/16/2022 7:14 PM Age: 77 years old Clinical indication: Pain; Wrist; Left; Additional info: Distal radius pain and scaphoid pain after fall TECHNIQUE: Imaging protocol: Radiologic exam of the left wrist. Views: 1 or 2 views. COMPARISON: No relevant prior studies available. FINDINGS: Bones/joints: Osseous alignment is normal. No acute fracture. Specifically, the carpal navicular appears intact No significant arthritic change. Soft tissues: Normal. IMPRESSION: Normal appearance of the carpal navicular Dictated and Authenticated by: Dane Batista MD. Ordering:MARK Heath MD
[2022-07-16 20:33] VITALS: PULSE 85; RESP 20; O2SAT 98
--- NOTE | 2022-07-17 09:03 | W.ED.FU ---
Date of service: 07/17/22 Time of Service: 09:03 Follow Up Plan: Received call from Dr. Guan. The patient has a nondisplaced proximal fibula fracture. She has been able to weight-bear at home but with some ongoing pain. We will have her continue to use a cane or walker. I have placed a referral to orthopedics on her behalf
--- NOTE | 2022-07-17 09:05 | NUR.NOTE ---
Nursing Note: Referral faxed to [facility] for follow up of proximal fibula fx, walker and cane, weight bearing.
== END 2022-07-16 20:34 | disposition home or self-care (01) ==
PROVIDERS: Emergency Provider Student in an Organized Health Care Education/Training Program; PCP Family Medicine
DX: S63.502A Unspecified sprain of left wrist, initial encounter (principal); W10.9XXA Fall (on) (from) unspecified stairs and steps, initial encounter; M79.661 Pain in right lower leg; S82.831A Other fracture of upper and lower end of right fibula, initial encounter for closed fracture
CPT/HCPCS: 73562; 99284; 73110; 73590; 99283

== ENCOUNTER 2022-07-24 11:42 | Outpatient (CLI) | payer MEDICARE, MEDICAID, SELFPAY ==
--- NOTE | 2022-07-24 10:15 | DI.RAD_ITS ---
Exam(s) XR ANKLE RT COMPLETE XR TIB/FIB RT EXAM: XR TIB/FIB RT and XR ankle RT complete CLINICAL HISTORY: f/u fx. TECHNIQUE: 2D digital imaging was performed of the right tibia and fibula and ankle. Five images we re obtained. AP, oblique and lateral views were obtained. COMPARISON: CR,XR XR TIB/FIB RT from 07/16/2022 FINDINGS: BONES: There is again seen a fracture involving the proximal shaft of the right fibula. On the curre nt examination, there is mild 1-2 mm of displacement of the distal fracture anteriorly. No bony dest ructive lesion is seen. Visualized portion of knee and ankle joints are unremarkable. SOFT TISSUE: Normal. IMPRESSION: Proximal right fibular fracture which now shows 1-2 mm of displacement anteriorly. DATA REPOSITORY: RADIATION DOSE DELIVERED:
== END 2022-07-24 11:43 | disposition home or self-care (01) ==
LOC: DIORS 11:42
PROVIDERS: PCP Family Medicine; Referring Provider Family Medicine; Visit Provider Physician Assistant
DX: M17.11 Unilateral primary osteoarthritis, right knee (principal); M17.0 Bilateral primary osteoarthritis of knee; S82.831A Other fracture of upper and lower end of right fibula, initial encounter for closed fracture; W19.XXXA Unspecified fall, initial encounter
CPT/HCPCS: 99214; 73590; 73610

== ENCOUNTER 2022-09-04 10:37 | Outpatient (CLI) | payer MEDICARE, MEDICAID, SELFPAY ==
--- NOTE | 2022-09-04 10:15 | DI.RAD_ITS ---
Exam(s) XR TIB/FIB RT EXAM: XR TIB/FIB RT CLINICAL HISTORY: f/u R FIB FX. TECHNIQUE: 2D digital imaging was performed of the right tibia and fibula. Three images were obtaine d. AP and lateral views were obtained. COMPARISON: CR XR TIB/FIB RT from 07/24/2022 FINDINGS: BONES: There is a healing fracture of the proximal fibular diaphysis. Alignment of the fracture appe ars unchanged. No bony destructive lesion is seen. Visualized portion of knee and ankle joints are u nremarkable. SOFT TISSUE: Normal. IMPRESSION: Healing proximal fibular fracture. DATA REPOSITORY: RADIATION DOSE DELIVERED:
--- NOTE | 2022-09-04 10:30 | DI.RAD_ITS ---
Exam(s) XR KNEE RT 3V AP,LAT,SHARON EXAM: XR KNEE RT 3V AP,LAT,SHARON CLINICAL HISTORY: eval R knee pain - anterolateral. TECHNIQUE: 2D digital imaging was performed of the right knee. Three views obtained. AP, lateral an d PA tunnel views were obtained. COMPARISON: CR XR KNEE RT 3V AP,LAT,SHARON from 07/01/2019 CR,XR XR TIB/FIB RT from 07/16/2022 FINDINGS: BONES: There is again seen a fracture of the proximal fibular diaphysis which shows callus formation. No new fractures identified. The articular surfaces of the knee are unchanged compared to prior ex amination. JOINTS: The knee is normally aligned. There is a small joint effusion. Degenerative changes are seen in the knee with joint space narrowing and periarticular spurring. Chondrocalcinosis is present. SOFT TISSUE: Normal. IMPRESSION: 1. Healing proximal right fibular fracture. 2. Degenerative changes in the knee. Small joint effusion. DATA REPOSITORY: RADIATION DOSE DELIVERED:
== END 2022-09-04 10:38 | disposition home or self-care (01) ==
PROVIDERS: PCP Family Medicine; Referring Provider Family Medicine; Visit Provider Student in an Organized Health Care Education/Training Program
DX: M17.11 Unilateral primary osteoarthritis, right knee; S82.831D Other fracture of upper and lower end of right fibula, subsequent encounter for closed fracture with routine healing; W19.XXXD Unspecified fall, subsequent encounter
CPT/HCPCS: 20610; 73562; 73590; J1040

== ENCOUNTER 2022-09-18 09:48 | Outpatient (CLI) | payer MEDICARE, MEDICAID, SELFPAY ==
--- NOTE | 2022-09-18 08:00 | DI.US_ITS ---
Exam(s) US LOWER EXTREMITY VENOUS RT EXAM: US LOWER EXTREMITY VENOUS RT CLINICAL HISTORY: pain and swelling of RLE, pain rt calf, M79.661 TECHNIQUE: Right lower extremity venous ultrasound performed using grayscale, color-flow, and spectr al Doppler analysis. COMPARISON: No priors for comparison. FINDINGS: The right common femoral, femoral and popliteal veins demonstrate normal compressibility, augmentatio n, and color Doppler. The posterior tibial veins are patent. The saphenofemoral junction is unremark able. There is no evidence of a Hanna cyst. The soft tissues are unremarkable. IMPRESSION: No evidence of a right lower extremity DVT. DATA REPOSITORY:
== END 2022-09-18 10:08 ==
PROVIDERS: PCP Family Medicine; Visit Provider Student in an Organized Health Care Education/Training Program
DX: M79.661 Pain in right lower leg (principal)
CPT/HCPCS: 93971

== ENCOUNTER 2022-11-14 02:20 | Outpatient (CLI) | payer MEDICARE, MEDICAID, SELFPAY ==
[2022-11-14 14:06] LABS: Abs Immature Grans 0.03 10^3/uL (0.0-0.06); Absolute Basophil Count 0.06 10^3/uL (0.0-0.2); Absolute Eosinophil Count 0.25 10^3/uL (0.0-0.7); Absolute Lymphocyte Count 1.22 10^3/uL (1.2-3.4); Absolute Monocyte Count 0.86 10^3/uL (0.1-0.8); Absolute Neutrophil Count 5.95 10^3/uL (1.2-6.7); Basophils % 0.7; HCT 34.7 % (36.0-46.0); Immature Grans % 0.4; Lymphocytes % 14.6; MCH 30.1 pg (27.0-33.0); MCHC 31.7 % (32.0-36.0); MCV 95 fL (80-95); MPV 8.9 fL (8.0-11.0); Monocytes % 10.3; Platelet Count 329 10^3/uL (130-400); RBC 3.65 10^6/uL (3.93-5.22); RDW 13.3 % (11.7-14.6); RDW-SD 46.7 fL; WBC 8.37 10^3/uL (4.4-10.8)
[2022-11-14 14:22] LABS: ALT 16 U/L (14-59); AST 12 U/L (15-37); Albumin 3.5 g/dL (3.4-5.0); Alkaline Phosphatase 117 U/L (46-116); Anion Gap 5.3 mmol/L (3-11); BUN 25 mg/dL (7-18); Bilirubin, Total 0.2 mg/dL (0.2-1.0); CO2 30.7 mmol/L (21.0-32.0); Calcium 9.1 mg/dL (8.5-10.1); Chloride 103 mmol/L (98-107); Estimated GFR 58.02 (mL/min/1.73m2); Glucose 110 mg/dL (74-106); LDH 142 U/L (81-234); Potassium 4.3 mmol/L (3.5-5.1); Sodium 139 mmol/L (136-145); Total Protein 7.1 g/dL (6.4-8.2)
[2022-11-14 14:39] LABS: Iron 57 ug/dL (50-170); Total Iron Binding Capacity 348 ug/dL (250-450); Transferrin Sat 16 % (15-50)
[2022-11-14 14:44] LABS: Ferritin 22 ng/mL (8-252)
== END 2022-11-14 02:21 | disposition home or self-care (01) ==
LOC: LBO 02:20
PROVIDERS: PCP Family Medicine; Visit Provider Internal Medicine Hematology & Oncology
DX: D50.9 Iron deficiency anemia, unspecified (principal); C85.89 Other specified types of non-Hodgkin lymphoma, extranodal and solid organ sites
CPT/HCPCS: 36415; 80053; 82728; 83540; 83550; 83615; 85025

== ENCOUNTER 2022-12-04 12:10 | Outpatient (CLI) | payer MEDICARE, MEDICAID, SELFPAY ==
--- NOTE | 2022-12-04 12:00 | DI.RAD_ITS ---
Exam(s) XR TIB/FIB RT EXAM: XR TIB/FIB RT CLINICAL HISTORY: eval R fibula frx, ongoing lateral swelling. TECHNIQUE: 2D digital imaging was performed. Two views. COMPARISON: CR XR TIB/FIB RT from 09/04/2022 FINDINGS: BONES: There has been no change in the alignment of the proximal fibular fracture. There is increase d callus formation around the fracture site indicating some interval healing. No bony destructive le viviana is seen. Visualized portion of knee and ankle joints are unremarkable. SOFT TISSUE: Normal. IMPRESSION: Healing fracture proximal fibula. DATA REPOSITORY: RADIATION DOSE DELIVERED:
== END 2022-12-04 12:11 | disposition home or self-care (01) ==
LOC: DIORS 12:10
PROVIDERS: PCP Family Medicine; Referring Provider Family Medicine; Visit Provider Student in an Organized Health Care Education/Training Program
DX: S82.831D Other fracture of upper and lower end of right fibula, subsequent encounter for closed fracture with routine healing (principal); X58.XXXD Exposure to other specified factors, subsequent encounter
CPT/HCPCS: 20610; 73590; J1040

== ENCOUNTER 2023-01-19 04:18 | Outpatient (CLI) | payer MEDICARE, MEDICAID, SELFPAY ==
[2023-01-19 11:10] LABS: Abs Immature Grans 0.02 10^3/uL (0.0-0.06); Absolute Basophil Count 0.03 10^3/uL (0.0-0.2); Absolute Lymphocyte Count 0.88 10^3/uL (1.2-3.4); Absolute Neutrophil Count 5.13 10^3/uL (1.2-6.7); Basophils % 0.4; Eosinophils % 2.9; HCT 38.6 % (36.0-46.0); HGB 12.3 g/dL (11.2-15.7); Immature Grans % 0.3; Lymphocytes % 12.6; MCH 30.4 pg (27.0-33.0); MCHC 31.9 % (32.0-36.0); MCV 96 fL (80-95); MPV 9.2 fL (8.0-11.0); Monocytes % 10.1; Neutrophils % 73.7; Platelet Count 324 10^3/uL (130-400); RBC 4.04 10^6/uL (3.93-5.22); RDW 13.7 % (11.7-14.6); RDW-SD 48.8 fL; WBC 6.96 10^3/uL (4.4-10.8)
[2023-01-19 11:38] LABS: ALT 23 U/L (14-59); AST 18 U/L (15-37); Albumin 3.6 g/dL (3.4-5.0); Alkaline Phosphatase 123 U/L (46-116); Anion Gap 6.2 mmol/L (3-11); BUN 27 mg/dL (7-18); Bilirubin, Total 0.4 mg/dL (0.2-1.0); CO2 30.8 mmol/L (21.0-32.0); Calcium 9.8 mg/dL (8.5-10.1); Chloride 101 mmol/L (98-107); Estimated GFR 58.02 (mL/min/1.73m2); Ferritin 404 ng/mL (8-252); Glucose 118 mg/dL (74-106); LDH 131 U/L (81-234); Potassium 4.2 mmol/L (3.5-5.1); Sodium 138 mmol/L (136-145); Total Protein 7.3 g/dL (6.4-8.2)
[2023-01-19 11:53] LABS: Iron 83 ug/dL (50-170); Total Iron Binding Capacity 263 ug/dL (250-450); Transferrin Sat 32 % (15-50)
== END 2023-01-19 04:19 | disposition home or self-care (01) ==
LOC: LBO 04:18
PROVIDERS: PCP Family Medicine; Visit Provider Internal Medicine Hematology & Oncology
DX: C85.89 Other specified types of non-Hodgkin lymphoma, extranodal and solid organ sites (principal); D50.9 Iron deficiency anemia, unspecified
CPT/HCPCS: 36415; 80053; 82728; 83540; 83550; 83615; 85025

== ENCOUNTER → 2023-02-02 14:20 | Outpatient (BNVA) | payer MEDICARE, MEDICAID, SELFPAY | PROVIDERS: PCP Family Medicine; Visit Provider Student in an Organized Health Care Education/Training Program | DX: M17.11 Unilateral primary osteoarthritis, right knee (principal) | CPT/HCPCS: 99212 ==

== ENCOUNTER → 2023-02-27 09:50 | Outpatient (BNVA) | payer MEDICARE, MEDICAID, SELFPAY | PROVIDERS: PCP Family Medicine; Referring Provider Family Medicine | DX: M17.11 Unilateral primary osteoarthritis, right knee (principal) | CPT/HCPCS: 20610; J1040 ==

== ENCOUNTER 2023-05-15 04:30 | Outpatient (CLI) | payer MEDICARE, MEDICAID, SELFPAY ==
[2023-05-15 12:07] LABS: Abs Immature Grans 0.03 10^3/uL (0.0-0.06); Absolute Basophil Count 0.06 10^3/uL (0.0-0.2); Absolute Eosinophil Count 0.19 10^3/uL (0.0-0.7); Absolute Monocyte Count 0.77 10^3/uL (0.1-0.8); Absolute Neutrophil Count 6.22 10^3/uL (1.2-6.7); Basophils % 0.7; Eosinophils % 2.3; HCT 37.1 % (36.0-46.0); HGB 11.9 g/dL (11.2-15.7); Immature Grans % 0.4; Lymphocytes % 12.1; MCH 30.8 pg (27.0-33.0); MCHC 32.1 % (32.0-36.0); MCV 96 fL (80-95); MPV 8.9 fL (8.0-11.0); Monocytes % 9.3; Neutrophils % 75.2; Platelet Count 352 10^3/uL (130-400); RBC 3.86 10^6/uL (3.93-5.22); RDW 12.5 % (11.7-14.6); RDW-SD 44.3 fL; WBC 8.27 10^3/uL (4.4-10.8)
[2023-05-15 12:23] LABS: ALT 18 U/L (14-59); AST 15 U/L (15-37); Albumin 3.5 g/dL (3.4-5.0); Alkaline Phosphatase 111 U/L (46-116); Anion Gap 11.1 mmol/L (3-11); BUN 34 mg/dL (7-18); Bilirubin, Total 0.4 mg/dL (0.2-1.0); CO2 26.9 mmol/L (21.0-32.0); CREATININE 1.2 mg/dL (0.55-1.02); Calcium 9.7 mg/dL (8.5-10.1); Chloride 103 mmol/L (98-107); Estimated GFR 46.62 (mL/min/1.73m2); Glucose 167 mg/dL (74-106); LDH 135 U/L (81-234); Potassium 4.1 mmol/L (3.5-5.1); Sodium 141 mmol/L (136-145); Total Protein 7.3 g/dL (6.4-8.2)
[2023-05-15 12:51] LABS: Ferritin 216 ng/mL (8-252)
[2023-05-15 13:50] LABS: Iron 65 ug/dL (50-170); Total Iron Binding Capacity 291 ug/dL (250-450); Transferrin Sat 22 % (15-50)
== END 2023-05-15 04:31 | disposition home or self-care (01) ==
PROVIDERS: PCP Family Medicine; Visit Provider Internal Medicine Hematology & Oncology
DX: C85.89 Other specified types of non-Hodgkin lymphoma, extranodal and solid organ sites (principal)
CPT/HCPCS: 36415; 80053; 82728; 83540; 83550; 83615; 85025

== ENCOUNTER → 2023-07-03 16:37 | Outpatient (CLI) | payer MEDICARE, MEDICAID, SELFPAY ==
--- NOTE | 2023-07-03 | DI.US_ITS ---
Exam(s) US ABDOMEN LIMITED EXAM: US ABDOMEN LIMITED CLINICAL HISTORY: R10.10 Upper abd pain unspecified TECHNIQUE: Ultrasound abdomen performed using standard protocol. COMPARISON: US US ECHOCARDIOGRAM from 01/24/[address] CHEST/ABD/PEL W from 06/12/2020 FINDINGS: PANCREAS: Normal where visualized. LIVER: There is increased echogenicity of the liver consistent with fatty infiltration. Hepatopetal flow in the Portal Vein. The liver measures in 19.9 cm length. GALLBLADDER: No evidence of cholelithiasis. No evidence of wall thickening. No pericholecystic fluid identified. There are 2 echogenic foci seen in the payne of the gallbladder which may represent adeno myomatosis. These may also represent small polyps. BILIARY SYSTEM: Common bile duct measures < 7 mm. No intrahepatic biliary ductal dilation. BECERRIL'S SIGN: Negative. RIGHT KIDNEY: Kidney is normal in size. No evidence of renal calculi. No evidence of hydronephrosis. There are 2 right renal cysts. The largest measures 1.7 x 1.6 x 2.2 cm. No follow-up is recommende d. ASCITES: None seen. IMPRESSION: 1. Hepatomegaly and hepatic steatosis. 2. Two immobile echogenic foci along the wall of the gallbladder. Differential considerations includ e adenomyomatosis or small polyps. DATA REPOSITORY:
== END ==
PROVIDERS: PCP Family Medicine; Visit Provider Physician Assistant Medical
DX: R10.11 Right upper quadrant pain (principal); K76.0 Fatty (change of) liver, not elsewhere classified; R16.0 Hepatomegaly, not elsewhere classified; K82.8 Other specified diseases of gallbladder
CPT/HCPCS: 76705

== ENCOUNTER 2023-07-03 19:04 | Outpatient (REF) | payer MEDICARE, MEDICAID, SELFPAY ==
[2023-07-03 19:41] LABS: Bilirubin Negative (Negative); Blood Trace-intact (Negative); Clarity Cloudy (Clear); Glucose Negative (Negative); Ketones Trace mg/dL (Negative); Leukocyte Esterase Moderate (Negative); Nitrite Negative (Negative); Specific Gravity 1.025 (1.005-1.025); Urobilinogen 0.2 mg/dL (Up to 0.2); pH 5.5 (5-8)
[2023-07-03 19:52] LABS: Bacteria Moderate HPF (Negative); C & S Indicated? C&S Done As Ordered; Crystals Negative HPF (Negative); Epithelial Cells Many HPF (Negative); Mucus Moderate (Negative); Other Cells Rare Transitional (Negative); RBC 0-2 HPF (0-2); WBC 20-50 HPF (0-5)
[2023-07-03 21:32] LABS: Abs Immature Grans 0.04 10^3/uL (0.0-0.06); Absolute Basophil Count 0.07 10^3/uL (0.0-0.2); Absolute Lymphocyte Count 1.04 10^3/uL (1.2-3.4); Absolute Monocyte Count 0.95 10^3/uL (0.1-0.8); Absolute Neutrophil Count 7.99 10^3/uL (1.2-6.7); Basophils % 0.7; Eosinophils % 1.9; HCT 38.8 % (36.0-46.0); HGB 12.5 g/dL (11.2-15.7); Immature Grans % 0.4; Lymphocytes % 10.1; MCH 30.8 pg (27.0-33.0); MCHC 32.2 % (32.0-36.0); MCV 96 fL (80-95); MPV 9.8 fL (8.0-11.0); Monocytes % 9.2; Neutrophils % 77.7; Platelet Count 387 10^3/uL (130-400); RBC 4.06 10^6/uL (3.93-5.22); RDW 12.2 % (11.7-14.6); RDW-SD 42.5 fL; WBC 10.29 10^3/uL (4.4-10.8)
[2023-07-03 21:39] LABS: ALT 18 U/L (14-59); AST 14 U/L (15-37); Albumin 3.6 g/dL (3.4-5.0); Alkaline Phosphatase 130 U/L (46-116); Anion Gap 8.3 mmol/L (3-11); BUN 22 mg/dL (7-18); Bilirubin, Total 0.4 mg/dL (0.2-1.0); CO2 29.7 mmol/L (21.0-32.0); CREATININE 1.2 mg/dL (0.55-1.02); Calcium 9.5 mg/dL (8.5-10.1); Chloride 102 mmol/L (98-107); Estimated GFR 46.33 (mL/min/1.73m2); Glucose 102 mg/dL (74-106); Lipase 61 U/L (16-77); Potassium 4.3 mmol/L (3.5-5.1); Sodium 140 mmol/L (136-145); Total Protein 7.2 g/dL (6.4-8.2)
== END 2023-07-03 19:05 | disposition home or self-care (01) ==
LOC: LBN 19:04
PROVIDERS: PCP Family Medicine; Visit Provider Physician Assistant Medical
DX: R10.10 Upper abdominal pain, unspecified (principal); R82.998 Other abnormal findings in urine
CPT/HCPCS: 80053; 83690; 81003; 81015; 85025; 87086

== ENCOUNTER 2023-07-13 17:23 | Outpatient (REF) | payer MEDICARE, MEDICAID, SELFPAY ==
[2023-07-13 19:47] LABS: COMMENT (LAB VIEW ONLY) 175.14 mg/dL; Microalb ug/mg Crea 20.7 ug/mg Cr
[2023-07-13 20:24] LABS: C-Reactive Protein 1.01 mg/dL (<or=0.5)
[2023-07-13 20:30] LABS: Hemoglobin A1C 5.8 % (<5.7)
[2023-07-13 21:05] LABS: Calculated LDL 61 mg/dL (<100); Cholesterol 158 mg/dL (<200); Folate > 20.0 ng/mL (8.6-20.0); HDL Cholesterol 64 mg/dL (40-60); Triglyceride 168 mg/dL (<150); Vitamin B12 1453 pg/mL (193-986)
== END 2023-07-13 17:24 | disposition home or self-care (01) ==
LOC: NCHCN 17:23
PROVIDERS: PCP Family Medicine; Visit Provider Family Medicine
DX: E11.40 Type 2 diabetes mellitus with diabetic neuropathy, unspecified (principal); E78.5 Hyperlipidemia, unspecified; M79.606 Pain in leg, unspecified
CPT/HCPCS: 80061; 82043; 82570; 82607; 82746; 83036; 86140

== ENCOUNTER → 2023-07-17 01:47 | Outpatient (CLI) | payer MEDICARE, MEDICAID, SELFPAY ==
--- NOTE | 2023-07-17 | DI.DEXA_ITS ---
Exam(s) XR DEXA BONE DENSITY W/WO DAVID EXAM: XR DEXA BONE DENSITY W/WO DAVID CLINICAL HISTORY: SCREENING FOR OSTEOPOROSIS, ASYMPTOMATIC MENOPAUSAL STATE, Z78.0 TECHNIQUE: [employer] C densitometer analysis of left hip, lumbar spine and left forearm. Lat eral survey image of the thoracic and lumbar spine. COMPARISON: CT CT CHEST/ABD/PEL W from 06/12/2020 CR XR DEXA BONE DENSITY W/WO DAVID from 06/28/2020 FINDINGS: Lateral view of the thoracic and lumbar spine shows no evidence of compression fractures. Bone mineral density measurements of the lumbar spine correspond to a total T-score of -1.4, in the osteopenic range. This represents a 2.9 percent decrease compared with 202. Bone mineral density measurements of the left hip correspond to a total T-score of -4.0. This repre sents a 30.5 percent decrease from the 2020 examination.. The femoral neck T-score is -4.5, in the osteoporotic range.. Theleft forearm bone mineral density measurements correspond to a T-score of the distal 3rd of -3.8, in the osteoporotic range. This represents a 2.8 percent decrease from 202.. IMPRESSION: Osteoporosis of the forearm and hip. Osteopenia of the lumbar spine. There has been significant dec rease in bone mineral density of the hip compared to the prior exam.
== END ==
PROVIDERS: PCP Family Medicine; Visit Provider Family Medicine
DX: Z78.0 Asymptomatic menopausal state (principal); M81.0 Age-related osteoporosis without current pathological fracture; M85.88 Other specified disorders of bone density and structure, other site
CPT/HCPCS: 77080

== ENCOUNTER 2023-07-24 02:39 | Outpatient (CLI) | payer MEDICARE, MEDICAID, SELFPAY ==
[2023-07-24 11:33] LABS: FREE T4 0.76 ng/dL (0.76-1.46)
[2023-07-24 11:45] LABS: Vitamin D 25 Total 33.5 ng/mL (30-100)
[2023-07-24 18:07] LABS: Parathyroid Hormone,Intact 94 pg/mL (19-88)
[2023-07-27 10:49] LABS: Beta-CrossLaps (B-CTx) 981 pg/mL
[2023-07-27 19:56] LABS: Tissue Transglutaminase Ab IgG 1.4 U/mL
[2023-08-04 14:51] LABS: Procollagen I IntactN-Terminal 63 mcg/L
== END 2023-07-24 02:40 | disposition home or self-care (01) ==
LOC: LBO 02:39
PROVIDERS: PCP Family Medicine; Visit Provider Family Medicine
DX: M81.0 Age-related osteoporosis without current pathological fracture (principal)
CPT/HCPCS: 36415; 82306; 82523; 83519; 86364; 83970; 84100; 84439; 84443

== ENCOUNTER 2023-07-24 11:15 | Outpatient (REF) | payer MEDICARE, MEDICAID, SELFPAY ==
[2023-07-24 13:10] LABS: Creatinine,Urine 46.08 mg/dL
[2023-07-24 13:12] LABS: Creatinine,24hr Ur 0.83 g/24hr (0.60-1.80); Total Volume 1800 ml
[2023-07-25 08:50] LABS: Calcium Urine 1.7 mg/dL (See Note); Calcium Urine 24 hr 31 mg/24hr (100-300); Timed Urine Volume 1800 mL
== END 2023-07-24 11:16 | disposition home or self-care (01) ==
LOC: NCHCN 11:15
PROVIDERS: PCP Family Medicine; Visit Provider Family Medicine
DX: M81.0 Age-related osteoporosis without current pathological fracture (principal)
CPT/HCPCS: 81050; 82340; 82570

== ENCOUNTER 2023-11-19 02:41 | Outpatient (CLI) | payer MEDICARE, MEDICAID, SELFPAY ==
[2023-11-19 11:55] LABS: Abs Immature Grans 0.03 10^3/uL (0.0-0.06); Absolute Basophil Count 0.03 10^3/uL (0.0-0.2); Absolute Eosinophil Count 0.25 10^3/uL (0.0-0.7); Absolute Lymphocyte Count 1.04 10^3/uL (1.2-3.4); Absolute Neutrophil Count 5.12 10^3/uL (1.2-6.7); Basophils % 0.4 %; Eosinophils % 3.4 %; HGB 11.3 g/dL (11.2-15.7); Immature Grans % 0.4 %; Lymphocytes % 14.3 %; MCH 29.2 pg (27.0-33.0); MCHC 31.4 % (32.0-36.0); MCV 93 fL (80-95); MPV 9.2 fL (8.0-11.0); Neutrophils % 70.5 %; Platelet Count 325 10^3/uL (130-400); RBC 3.87 10^6/uL (3.93-5.22); RDW 13.1 % (11.7-14.6); RDW-SD 44.9 fL; WBC 7.27 10^3/uL (4.4-10.8)
[2023-11-19 12:19] LABS: ALT 23 U/L (14-59); AST 14 U/L (15-37); Albumin 3.3 g/dL (3.4-5.0); Alkaline Phosphatase 108 U/L (46-116); Anion Gap 8.7 mmol/L (3-11); BUN 31 mg/dL (7-18); Bilirubin, Total 0.41 mg/dL (0.2-1.0); CO2 28.3 mmol/L (21.0-32.0); CREATININE 1.2 mg/dL (0.55-1.02); Chloride 105 mmol/L (98-107); Estimated GFR 46.33 (mL/min/1.73m2); Ferritin 70 ng/mL (8-252); Glucose 109 mg/dL (74-106); Iron 64 ug/dL (50-170); Potassium 4.9 mmol/L (3.5-5.1); Sodium 142 mmol/L (136-145); Total Iron Binding Capacity 295 ug/dL (250-450); Transferrin Sat 22 % (15-50)
[2023-11-19 12:46] LABS: LDH 136 U/L (81-234)
== END 2023-11-19 02:42 | disposition home or self-care (01) ==
LOC: LBO 02:41
PROVIDERS: PCP Family Medicine; Visit Provider Nurse Practitioner Adult Health
DX: C85.89 Other specified types of non-Hodgkin lymphoma, extranodal and solid organ sites (principal); D50.9 Iron deficiency anemia, unspecified
CPT/HCPCS: 36415; 80053; 82728; 83540; 83550; 83615; 85025

== ENCOUNTER 2024-03-07 03:11 | Outpatient (CLI) | payer MEDICARE, MEDICAID, SELFPAY ==
[2024-03-07 13:01] LABS: Abs Immature Grans 0.02 10^3/uL (0.0-0.06); Absolute Basophil Count 0.04 10^3/uL (0.0-0.2); Absolute Eosinophil Count 0.23 10^3/uL (0.0-0.7); Absolute Lymphocyte Count 1.03 10^3/uL (1.2-3.4); Absolute Neutrophil Count 4.37 10^3/uL (1.2-6.7); Basophils % 0.6 %; Eosinophils % 3.7 %; HCT 35.9 % (36.0-46.0); HGB 11.2 g/dL (11.2-15.7); Immature Grans % 0.3 %; Lymphocytes % 16.4 %; MCH 29.5 pg (27.0-33.0); MCHC 31.2 % (32.0-36.0); MCV 95 fL (80-95); MPV 9.2 fL (8.0-11.0); Monocytes % 9.5 %; Neutrophils % 69.5 %; Platelet Count 314 10^3/uL (130-400); RDW 13.4 % (11.7-14.6); RDW-SD 46.9 fL; WBC 6.29 10^3/uL (4.4-10.8)
[2024-03-07 13:26] LABS: ALT 19 U/L (14-59); AST 16 U/L (15-37); Albumin 3.2 g/dL (3.4-5.0); Alkaline Phosphatase 97 U/L (46-116); Anion Gap 4.8 mmol/L (3-11); BUN 29 mg/dL (7-18); Bilirubin, Total 0.35 mg/dL (0.2-1.0); CO2 32.2 mmol/L (21.0-32.0); CREATININE 1.1 mg/dL (0.55-1.02); Calcium 9.5 mg/dL (8.5-10.1); Chloride 106 mmol/L (98-107); Estimated GFR 51.43 (mL/min/1.73m2); Ferritin 65 ng/mL (8-252); Glucose 146 mg/dL (74-106); Potassium 4.5 mmol/L (3.5-5.1); Sodium 143 mmol/L (136-145); Total Protein 7.2 g/dL (6.4-8.2)
[2024-03-07 13:38] LABS: Iron 63 ug/dL (50-170); Total Iron Binding Capacity 308 ug/dL (250-450); Transferrin Sat 20 % (15-50)
[2024-03-07 13:40] LABS: LDH 146 U/L (81-234)
== END 2024-03-07 03:12 | disposition home or self-care (01) ==
LOC: LBO 03:11
PROVIDERS: PCP Family Medicine; Visit Provider Internal Medicine Hematology & Oncology
DX: D50.9 Iron deficiency anemia, unspecified (principal); C85.89 Other specified types of non-Hodgkin lymphoma, extranodal and solid organ sites
CPT/HCPCS: 36415; 80053; 82728; 83540; 83550; 83615; 85025

== ENCOUNTER → 2024-03-11 07:56 | Outpatient (BNVA) | payer MEDICARE, MEDICAID, SELFPAY | PROVIDERS: PCP Family Medicine; Referring Provider Family Medicine | DX: M17.11 Unilateral primary osteoarthritis, right knee (principal); M17.12 Unilateral primary osteoarthritis, left knee | CPT/HCPCS: 20610; J1010 ==

== ENCOUNTER 2024-05-14 16:23 | Outpatient (REF) | payer MEDICARE, MEDICAID, SELFPAY ==
[2024-05-14 16:33] LABS: Abs Immature Grans 0.03 10^3/uL (0.0-0.06); Absolute Basophil Count 0.05 10^3/uL (0.0-0.2); Absolute Eosinophil Count 0.33 10^3/uL (0.0-0.7); Absolute Lymphocyte Count 0.79 10^3/uL (1.2-3.4); Absolute Monocyte Count 0.81 10^3/uL (0.1-0.8); Absolute Neutrophil Count 6.39 10^3/uL (1.2-6.7); Basophils % 0.6 %; Eosinophils % 3.9 %; HCT 36.7 % (36.0-46.0); HGB 11.3 g/dL (11.2-15.7); Immature Grans % 0.4 %; Lymphocytes % 9.4 %; MCH 29.1 pg (27.0-33.0); MCHC 30.8 % (32.0-36.0); MCV 95 fL (80-95); Monocytes % 9.6 %; Neutrophils % 76.1 %; Platelet Count 365 10^3/uL (130-400); RBC 3.88 10^6/uL (3.93-5.22); RDW 13.5 % (11.7-14.6); RDW-SD 46.7 fL
[2024-05-14 17:20] LABS: ALT 19 U/L (14-59); AST 15 U/L (15-37); Albumin 3.3 g/dL (3.4-5.0); Alkaline Phosphatase 103 U/L (46-116); Anion Gap 4.3 mmol/L (3-11); BUN 27 mg/dL (7-18); Bilirubin, Total 0.38 mg/dL (0.2-1.0); CO2 32.7 mmol/L (21.0-32.0); CREATININE 1.1 mg/dL (0.55-1.02); Calcium 9.4 mg/dL (8.5-10.1); Chloride 108 mmol/L (98-107); Estimated GFR 51.43 (mL/min/1.73m2); Glucose 121 mg/dL (74-106); Potassium 4.8 mmol/L (3.5-5.1); Sodium 145 mmol/L (136-145); Total Protein 6.7 g/dL (6.4-8.2)
== END 2024-05-14 16:24 | disposition home or self-care (01) ==
LOC: LBN 16:23
PROVIDERS: PCP Family Medicine; Visit Provider Nurse Practitioner Family
DX: R42 Dizziness and giddiness (principal)
CPT/HCPCS: 80053; 85025

== ENCOUNTER 2024-08-29 00:09 | Outpatient (CLI) | payer MEDICARE, MEDICAID, SELFPAY ==
[2024-08-29] MEDS: Barium Sulfate 2% W/V-Creamy Vanilla Smoothie 450 ML BTL PO ×2 (08:14→08:15)
[2024-08-29 08:36] LABS: Abs Immature Grans 0.06 10^3/uL (0.0-0.06); Absolute Basophil Count 0.06 10^3/uL (0.0-0.2); Absolute Eosinophil Count 0.29 10^3/uL (0.0-0.7); Absolute Monocyte Count 0.79 10^3/uL (0.1-0.8); Absolute Neutrophil Count 5.17 10^3/uL (1.2-6.7); Basophils % 0.8 %; Eosinophils % 3.9 %; HCT 36.9 % (36.0-46.0); HGB 11.6 g/dL (11.2-15.7); Immature Grans % 0.8 %; Lymphocytes % 14.7 %; MCH 29.4 pg (27.0-33.0); MCHC 31.4 % (32.0-36.0); MCV 94 fL (80-95); MPV 9.3 fL (8.0-11.0); Monocytes % 10.6 %; Neutrophils % 69.2 %; Platelet Count 323 10^3/uL (130-400); RBC 3.94 10^6/uL (3.93-5.22); RDW 13.4 % (11.7-14.6); RDW-SD 46.1 fL; WBC 7.47 10^3/uL (4.4-10.8)
[2024-08-29 08:54] LABS: ALT 19 U/L (14-59); AST 16 U/L (15-37); Albumin 3.5 g/dL (3.4-5.0); Alkaline Phosphatase 97 U/L (46-116); Anion Gap 9.1 mmol/L (3-11); BUN 31 mg/dL (7-18); Bilirubin, Total 0.4 mg/dL (0.2-1.0); CO2 28.9 mmol/L (21.0-32.0); CREATININE 1.3 mg/dL (0.55-1.02); Calcium 9.6 mg/dL (8.5-10.1); Chloride 104 mmol/L (98-107); Estimated GFR 41.83 (mL/min/1.73m2); Glucose 94 mg/dL (74-106); LDH 156 U/L (81-234); Potassium 4.4 mmol/L (3.5-5.1); Sodium 142 mmol/L (136-145); Total Protein 7.4 g/dL (6.4-8.2)
[2024-08-29 09:15] LABS: Iron 67 ug/dL (50-170); Total Iron Binding Capacity 324 ug/dL (250-450); Transferrin Sat 21 % (15-50)
[2024-08-29 09:17] LABS: Ferritin 48 ng/mL (8-252)
[2024-08-29] MEDS: Omnipaque 350 MG/ML 100 ML BTL IJ (10:34)
[2024-08-29] MEDS: Normal Saline - Diluent 50 ML VIAL IJ (10:36)
--- NOTE | 2024-08-29 10:50 | DI.CT_ITS ---
Exam(s) CT NECK CHEST ABD PEL W EXAM: CT NECK CHEST ABD PEL W CLINICAL HISTORY: HX MALT LYMPHOMA, SURVEILLANCE, HX LUNG NODULE TECHNIQUE: Imaging Protocol: Axial computed tomography images with coronal and sagittal reformatted images were created and reviewed. Computer aided detection (CAD) was utilized. CONTRAST MATERIAL: Intravenous: Omnipaque 350 Contrast volume:100 ml Oral: yes / COMPARISON: CT CT CHEST/ABD/PEL W from 06/12/2020 FINDINGS: Neck: Parotids/submandibular glands: Unremarkable. Thyroid gland: Stable nodule in the isthmus and lower pole of the right lobe. Lymphadenopathy: There are scattered lymph nodes seen along the level one to level three all measuri ng less than 8 mm in short axis diameter which are physiologic in nature. Carotids/Jugular: Within normal limits. Soft tissues: The floor the mouth is unremarkable. The epiglottis and vocal cords are within normal limits. Bones: Old left rib fracture. Moderate compression fracture of T7, new from prior exam. Degenerativ e disc changes throughout. Multilevel Schmorl's nodes. Chest: Tracheobronchial tree: Patent where visualized. Mediastinum and Ruthie: Increase in size of previously noted nodule in the anterior mediastinum now osorio suring 18 by 37 x 22 millimeters compared with 16 millimeters on prior exam. Pulmonary parenchyma: No consolidation. Scarring medial right upper lobe. Increased size previously noted nodule in the left lower lobe, measuring 8 millimeters in diameter compared to 3 on the prior. 4 millimeter nodule medial right lung base measured 2 millimeters on the prior exam. Pleura: No effusion or pneumothorax. Heart/Aorta: Thoracic aorta non-dilated. The heart is mildly dilated. Mild coronary artery calcifica tions are seen. Pulmonary arteries: No evidence of emboli. Bones: No fracture. No lytic or blastic lesions. ABDOMEN: Liver: Normal density. No measurable mass. Gallbladder and biliary tract: No radiodense calculus or dilation. Pancreas: Normal density, no abnormal calcifications or inflammatory process. Spleen: Normal. Kidneys: Normal size, contour and axis. No radiodense stones or obstructive uropathy. Increased size of circumscribed lesion at the posterior aspect of the right kidney, now measuring 2.3 cm compared to 0.9 cm on the prior exam. This may represent a hyperdense cyst. Stable simple cyst lower pole of t he right kidney. There are other lesions which are too small to characterize. Adrenal glands: No masses seen. Abdominal Aorta: Abdominal portion non-dilated. PELVIS: Bladder: Symmetric distention, no gross wall thickening. Bowel: Abnormal appearing wall thickening involving the terminal ileum, similar in appearance to prio r. No obstruction . Diverticulosis of the sigmoid. Peritoneal cavity: No ascites, collection or mesenteric inflammatory response. Reproductive: hysterectomy. Bones: Within normal limits. IMPRESSION: Stable appearance of thyroid nodule. Interval increase in size of lymph node in the anterior mediastinum. Increase in size of nodules at the bilateral lung bases. Similar appearance of wall thickening of the terminal ileum. Increase in size of lesion on the posterior aspect of the right kidney which may represent a hyperden se cyst. RADIATION DOSE DELIVERED: 1,848.14mGy.cm Total DLP DATA REPOSITORY: All CT scans at this facility are submitted to the National Radiology Data Registry (NRDR) Dose Index Registry (DIR) with the [employer] ([employer]). RADIATION OPTIMIZATION: All CT scans at this facility use at least one of these dose optimization te chniques: automated exposure control; mA and/or kV adjustment per patient size (includes targeted exa ms where dose is matched to clinical indication); or iterative reconstruction.
== END 2024-08-29 00:29 ==
LOC: DI 00:10
PROVIDERS: PCP Family Medicine; Visit Provider Internal Medicine Hematology & Oncology
DX: D50.0 Iron deficiency anemia secondary to blood loss (chronic) (principal); C85.89 Other specified types of non-Hodgkin lymphoma, extranodal and solid organ sites
CPT/HCPCS: 36415; 70491; 74177; 80053; 71260; 82728; 83540; 83550; 83615; 85025; J3490

== ENCOUNTER 2024-11-14 15:48 | Outpatient (REF) | payer MEDICARE, MEDICAID, SELFPAY ==
[2024-11-14 22:18] LABS: HCT 35.6 % (36.0-46.0); HGB 11.5 g/dL (11.2-15.7); MCH 30.8 pg (27.0-33.0); MCHC 32.3 % (32.0-36.0); MCV 95 fL (80-95); MPV 10.4 fL (8.0-11.0); Platelet Count 308 10^3/uL (130-400); RBC 3.73 10^6/uL (3.93-5.22); RDW 14.3 % (11.7-14.6); RDW-SD 50.4 fL; WBC 7.95 10^3/uL (4.4-10.8)
[2024-11-14 22:39] LABS: Ferritin 378 ng/mL (8-252)
== END 2024-11-14 15:49 | disposition home or self-care (01) ==
LOC: NCHCN 15:48
PROVIDERS: PCP Family Medicine; Visit Provider Family Medicine
DX: D50.9 Iron deficiency anemia, unspecified (principal)
CPT/HCPCS: 85027; 82728

== ENCOUNTER 2025-01-20 01:06 | Outpatient (CLI) | payer MEDICARE, MEDICAID, SELFPAY ==
[2025-01-20 10:13] LABS: Abs Immature Grans 0.03 10^3/uL (0.0-0.06); HCT 33.6 % (36.0-46.0); HGB 10.4 g/dL (11.2-15.7); Immature Grans % 0.5 %; MCH 30.0 pg (27.0-33.0); MCHC 31.0 % (32.0-36.0); MCV 97 fL (80-95); MPV 9.4 fL (8.0-11.0); Platelet Count 320 10^3/uL (130-400); RBC 3.47 10^6/uL (3.93-5.22); RDW 13.3 % (11.7-14.6); RDW-SD 47.9 fL; WBC 6.57 10^3/uL (4.4-10.8)
[2025-01-20 11:03] LABS: ALT 17 U/L (14-59); AST 13 U/L (15-37); Albumin 3.3 g/dL (3.4-5.0); Alkaline Phosphatase 84 U/L (46-116); Anion Gap 7.7 mmol/L (3-11); BUN 20 mg/dL (7-18); Bilirubin, Total 0.5 mg/dL (0.2-1.0); CO2 28.3 mmol/L (21.0-32.0); Calcium 9.8 mg/dL (8.5-10.1); Chloride 105 mmol/L (98-107); Estimated GFR 51.11 (mL/min/1.73m2); Ferritin 267 ng/mL (8-252); Glucose 95 mg/dL (74-106); Potassium 4.3 mmol/L (3.5-5.1); Sodium 141 mmol/L (136-145); Total Protein 6.9 g/dL (6.4-8.2)
[2025-01-20 11:19] LABS: LDH 162 U/L (81-234)
[2025-01-20 11:22] LABS: Iron 48 ug/dL (50-170); Total Iron Binding Capacity 269 ug/dL (250-450); Transferrin Sat 18 % (15-50)
== END 2025-01-20 01:07 | disposition home or self-care (01) ==
LOC: LBO 01:06
PROVIDERS: PCP Family Medicine; Visit Provider Internal Medicine Hematology & Oncology
DX: C85.89 Other specified types of non-Hodgkin lymphoma, extranodal and solid organ sites (principal)
CPT/HCPCS: 36415; 80053; 82728; 83540; 83550; 83615; 85025

== ENCOUNTER 2025-04-14 13:36 | Outpatient (REF) | payer MEDICARE, MEDICAID, SELFPAY ==
[2025-04-14 18:20] LABS: Microalb ug/mg Crea 34.3 ug/mg Cr
== END 2025-04-14 13:37 | disposition home or self-care (01) ==
LOC: NCHCN 13:36
PROVIDERS: PCP Family Medicine; Visit Provider Family Medicine
DX: M81.0 Age-related osteoporosis without current pathological fracture (principal)
CPT/HCPCS: 82043; 82570

== ENCOUNTER → 2025-04-17 00:16 | Outpatient (CLI) | payer MEDICARE, MEDICAID, SELFPAY ==
--- NOTE | 2025-04-17 | DI.RAD_ITS ---
Exam(s) XR TIB/FIB LT EXAM: XR TIB/FIB LT CLINICAL HISTORY: LT LEG PAIN,M70.605. TECHNIQUE: 2D digital imaging was performed of the left tibia and fibula. Three images were obtained. AP and lateral views were obtained. COMPARISON: No exams were available for comparison FINDINGS: BONES: There is a comminuted mildly displaced fracture involving the midshaft of the left fibula. Callus formation has developed suggestive of a subacute fracture. No bony destructive lesion is seen. Visualized portion of knee and ankle joints are unremarkable. SOFT TISSUE: Normal. IMPRESSION: Subacute comminuted mildly displaced fracture involving the midshaft of the left fibula. DATA REPOSITORY: RADIATION DOSE DELIVERED:
== END ==
LOC: DI 00:16
PROVIDERS: PCP Family Medicine; Visit Provider Family Medicine
DX: S82.452D Displaced comminuted fracture of shaft of left fibula, subsequent encounter for closed fracture with routine healing (principal); X58.XXXD Exposure to other specified factors, subsequent encounter
CPT/HCPCS: 73590